=== PATIENT | male | born 1970 | race Caucasian/White ===

== ENCOUNTER 2019-07-04 23:30 | Observation (INO) | payer OTHER ==
[2019-07-04] MEDS ORDERED: DILTIAZEM DRIP BOLUS FROM BAG 1 MG SOLN IV ONE (23:48)
[2019-07-04] MEDS ORDERED: SODIUM CHLORIDE 0.9% 1,000 ML IV STA (23:48)
[2019-07-05] MEDS: DILTIAZEM 125 MG in SODIUM CHLORIDE 0.9% 100 ML IV SCH ×2 (00:13→08:33)
--- NOTE | 2019-07-05 00:13 | ED ---
Arrhythmia/Palpitations HPI - General Chief Complaint: Arrhythmia/Palpitations Stated Complaint: Palpitations Time Seen by Provider: 07/04/19 23:37 Source: patient, family, RN notes reviewed, old records reviewed Mode of arrival: ambulatory Limitations: no limitations - History of Present Illness Initial Comments: This is a 49-year-old male here for evaluation patient currently if her heart racing and palpitations. No medical history of borderline high blood pressure but is still is using diet and exercise to combat his high blood pressure. Patient does admit to some New Year's resolutions including quitting smoking for 3 days, he has messaging increased caffeine today she is using combativeness smoking Perry, as well as drinking some alcohol today. Patient denying any chest pain travel history significant sick contacts or illicit drug abuse. MD Complaint: "heart racing", "skipped beats", palpitations, irregular heart beat -: hour(s) Context: occurred during rest Arrhythmia History: other (None although patient does admit to having symptoms like this before is not as severe and did not last as long) Associated Symptoms: shortness of breath, anxiety - Related Data Allergies Allergy/AdvReac Type Severity Reaction Status Date / Time No Known Allergies Allergy Verified 07/04/19 23:36 Review of Systems ROS Statement: Those systems with pertinent positive or pertinent negative responses have been documented in the HPI. ROS Other: All systems not noted in ROS Statement are negative. Past Medical History Past Medical History: No Reported History History of Any Multi-Drug Resistant Organisms: None Reported Past Surgical History: Appendectomy, Orthopedic Surgery Past Psychological History: No Psychological Hx Reported Smoking Status: Former smoker Past Alcohol Use History: Occasional Past Drug Use History: None Reported General Exam Limitations: no limitations General appearance: alert, in no apparent distress, anxious Head exam: Present: atraumatic, normocephalic, normal inspection Eye exam: Present: normal appearance, PERRL, EOMI. Absent: scleral icterus, conjunctival injection, periorbital swelling ENT exam: Present: normal exam, mucous membranes moist Neck exam: Present: normal inspection. Absent: tenderness, meningismus, lymphadenopathy Respiratory exam: Present: normal lung sounds bilaterally. Absent: respiratory distress, wheezes, rales, rhonchi, stridor Cardiovascular Exam: Present: tachycardia, irregular rhythm, normal heart sounds. Absent: systolic murmur, diastolic murmur, rubs, gallop, clicks GI/Abdominal exam: Present: soft, normal bowel sounds. Absent: distended, tenderness, guarding, rebound, rigid Extremities exam: Present: normal inspection, full ROM, normal capillary refill. Absent: tenderness, pedal edema, joint swelling, calf tenderness Back exam: Present: normal inspection Neurological exam: Present: alert, oriented X3, CN II-XII intact Psychiatric exam: Present: normal affect, normal mood Skin exam: Present: warm, dry, intact, normal color. Absent: rash Course Vital Signs 07/04/19 07/05/19 07/05/19 23:30 00:15 01:03 Temperature 98.1 F Pulse Rate 20 L 156 H 101 H Respiratory 157 H 18 17 Rate Blood Pressure 152/100 132/108 141/105 O2 Sat by Pulse 98 96 97 Oximetry - Reevaluation(s) Reevaluation #1: 07/05/19 00:11 Medical record review Reevaluation #2: 07/05/19 00:11 The patient at length regarding diagnosis and disease process, questions answered Reevaluation #3: 07/05/19 01:13 Patient symptoms are moderate improved - Consultations Consultation #1: Spoke with [facility] she was agreeable for admission EKG Findings - EKG Comments: EKG Findings:: EKG shows atrial fibrillation with RVR 136, QRS 150, QTC 448 Medical Decision Making - Medical Decision Making 49 male patient does have a trip for evaluation with RVR will be admitted for cardiac observation rate control anticoagulation. 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 - Lab Data Result diagrams: 07/04/19 23:50 07/04/19 23:50 Lab Results 07/04/19 07/04/19 07/04/19 Range/Units 23:50 23:50 23:50 WBC 10.2 (3.8-10.6) k/uL RBC 5.31 (4.30-5.90) m/uL Hgb 15.5 (13.0-17.5) gm/dL Hct 45.5 (39.0-53.0) % MCV 85.6 (80.0-100.0) fL MCH 29.1 (25.0-35.0) pg MCHC 34.0 (31.0-37.0) g/dL RDW 13.0 (11.5-15.5) % Plt Count 243 (150-450) k/uL Neutrophils % 53 % Lymphocytes % 35 % Monocytes % 7 % Eosinophils % 3 % Basophils % 1 % Neutrophils # 5.4 (1.3-7.7) k/uL Lymphocytes # 3.6 (1.0-4.8) k/uL Monocytes # 0.7 (0-1.0) k/uL Eosinophils # 0.3 (0-0.7) k/uL Basophils # 0.1 (0-0.2) k/uL Sodium 140 (137-145) mmol/L Potassium 4.2 (3.5-5.1) mmol/L Chloride 109 H (98-107) mmol/L Carbon Dioxide 22 (22-30) mmol/L Anion Gap 9 mmol/L BUN 15 (9-20) mg/dL Creatinine 0.74 (0.66-1.25) mg/dL Est GFR (CKD-EPI)AfAm >90 (>60 ml/min/1.73 sqM) Est GFR (CKD-EPI)NonAf >90 (>60 ml/min/1.73 sqM) Glucose 139 H (74-99) mg/dL Calcium 9.7 (8.4-10.2) mg/dL Phosphorus 4.1 (2.5-4.5) mg/dL Magnesium 2.1 (1.6-2.3) mg/dL Total Bilirubin 0.3 (0.2-1.3) mg/dL AST 28 (17-59) U/L ALT 30 (4-49) U/L Alkaline Phosphatase 107 (38-126) U/L Troponin I <0.012 (0.000-0.034) ng/mL Total Protein 7.3 (6.3-8.2) g/dL Albumin 4.7 (3.5-5.0) g/dL Urine Color Urine Appearance (Clear) Urine pH (5.0-8.0) Ur Specific Fenton (1.001-1.035) Urine Protein (Negative) Urine Glucose (UA) (Negative) Urine Ketones (Negative) Urine Blood (Negative) Urine Nitrite (Negative) Urine Bilirubin (Negative) Urine Urobilinogen (<2.0) mg/dL Ur Leukocyte Esterase (Negative) 07/04/19 Range/Units 23:50 WBC (3.8-10.6) k/uL RBC (4.30-5.90) m/uL Hgb (13.0-17.5) gm/dL Hct (39.0-53.0) % MCV (80.0-100.0) fL MCH (25.0-35.0) pg MCHC (31.0-37.0) g/dL RDW (11.5-15.5) % Plt Count (150-450) k/uL Neutrophils % % Lymphocytes % % Monocytes % % Eosinophils % % Basophils % % Neutrophils # (1.3-7.7) k/uL Lymphocytes # (1.0-4.8) k/uL Monocytes # (0-1.0) k/uL Eosinophils # (0-0.7) k/uL Basophils # (0-0.2) k/uL Sodium (137-145) mmol/L Potassium (3.5-5.1) mmol/L Chloride (98-107) mmol/L Carbon Dioxide (22-30) mmol/L Anion Gap mmol/L BUN (9-20) mg/dL Creatinine (0.66-1.25) mg/dL Est GFR (CKD-EPI)AfAm (>60 ml/min/1.73 sqM) Est GFR (CKD-EPI)NonAf (>60 ml/min/1.73 sqM) Glucose (74-99) mg/dL Calcium (8.4-10.2) mg/dL Phosphorus (2.5-4.5) mg/dL Magnesium (1.6-2.3) mg/dL Total Bilirubin (0.2-1.3) mg/dL AST (17-59) U/L ALT (4-49) U/L Alkaline Phosphatase (38-126) U/L Troponin I (0.000-0.034) ng/mL Total Protein (6.3-8.2) g/dL Albumin (3.5-5.0) g/dL Urine Color Light Yellow Urine Appearance Clear (Clear) Urine pH 6.5 (5.0-8.0) Ur Specific Fenton 1.004 (1.001-1.035) Urine Protein Negative (Negative) Urine Glucose (UA) Negative (Negative) Urine Ketones Negative (Negative) Urine Blood Negative (Negative) Urine Nitrite Negative (Negative) Urine Bilirubin Negative (Negative) Urine Urobilinogen <2.0 (<2.0) mg/dL Ur Leukocyte Esterase Negative (Negative) Critical Care Time Critical Care Time: Yes Total Critical Care Time: 31 Disposition Clinical Impression: Atrial fibrillation, Atrial fibrillation with RVR Disposition: ADMITTED IP TO THIS HOSP Condition: Good Is patient prescribed a controlled substance at d/c from ED?: No Referrals: Makenzie Petty III, MD [Primary Care Provider] - 1-2 days
[2019-07-05 00:49] LABS: Appearance,Urine Clear (Clear); Basophils # (A) 0.1 k/uL (0-0.2); Basophils % (A) 1 %; Bilirubin,Urine Negative (Negative); Blood,Urine Negative (Negative); Color,Urine Light Yellow; Eosinophils # (A) 0.3 k/uL (0-0.7); Eosinophils % (A) 3 %; Glucose,Urine (UA) Negative (Negative); HCT 45.5 % (39.0-53.0); HGB 15.5 gm/dL (13.0-17.5); Ketones,Urine Negative (Negative); Leukocyte Esterase,Urine Negative (Negative); Lymphocytes # (A) 3.6 k/uL (1.0-4.8); Lymphocytes % (A) 35 %; MCH 29.1 pg (25.0-35.0); MCV 85.6 fL (80.0-100.0); Mean Platelet Volume 7.5; Monocytes # (A) 0.7 k/uL (0-1.0); Monocytes % (A) 7 %; Neutrophils # (A) 5.4 k/uL (1.3-7.7); Neutrophils % (A) 53 %; Nitrite,Urine Negative (Negative); PH, Urine 6.5 (5.0-8.0); Platelet Count 243 k/uL (150-450); Protein,Urine Negative (Negative); RBC 5.31 m/uL (4.30-5.90); Specific Gravity,Urine 1.004 (1.001-1.035); Urobilinogen,Urine <2.0 mg/dL (<2.0); WBC 10.2 k/uL (3.8-10.6)
[2019-07-05] MEDS ORDERED: HEPARIN SODIUM,PORCINE 5,000 UNIT/ML 1 ML VIAL IV ONE (00:58)
[2019-07-05] MEDS ORDERED: NITROGLYCERIN SL TABS 0.4 MG TAB SUBLINGUAL PRN (00:58)
[2019-07-05] MEDS ORDERED: ASPIRIN 81 MG PO STA (00:58)
[2019-07-05 01:01] LABS: ALT 30 U/L (4-49); AST 28 U/L (17-59); African American GFR (CKD) >90 (>60 ml/min/1.73 sqM); Albumin 4.7 g/dL (3.5-5.0); Alkaline Phosphatase 107 U/L (38-126); Anion Gap 9 mmol/L; Blood Urea Nitrogen 15 mg/dL (9-20); Calcium 9.7 mg/dL (8.4-10.2); Carbon Dioxide 22 mmol/L (22-30); Chloride 109 mmol/L (98-107); Glucose 139 mg/dL (74-99); Magnesium 2.1 mg/dL (1.6-2.3); Non-African American GFR(CKD) >90 (>60 ml/min/1.73 sqM); Phosphorus 4.1 mg/dL (2.5-4.5); Potassium 4.2 mmol/L (3.5-5.1); Sodium 140 mmol/L (137-145); Total Bilirubin 0.3 mg/dL (0.2-1.3); Total Protein 7.3 g/dL (6.3-8.2)
[2019-07-05 01:23] LABS: D-Dimer 0.29 mg/L FEU (<0.60); INR 0.9 (<1.2); Partial Thromboplastin Time 24.8 sec (22.0-30.0); Prothrombin Time 9.6 sec (9.0-12.0)
[2019-07-05] MEDS: HEPARIN SOD,PORK IN 0.45% NACL 25,000 UNIT in 0.45% NACL 1 250ML.BAG IV SCH (03:09)
[2019-07-05] MEDS: SODIUM CHLORIDE 0.9% 1,000 ML IV SCH ×3 (03:14→21:06)
[2019-07-05 06:46] LABS: Mean Platelet Volume 7.3; Platelet Count 241 k/uL (150-450)
[2019-07-05] MEDS: METOPROLOL TARTRATE 25 MG TAB PO SCH ×2 (08:32→21:05)
[2019-07-05] MEDS: HEPARIN SODIUM,PORCINE 5,000 UNIT/ML 1 ML VIAL IV PRN (11:35)
--- NOTE | 2019-07-05 12:30 | ECHOF ---
Referral Reason:aFib MEASUREMENTS -------- HEIGHT: 182.9 cm WEIGHT: 103.0 kg BP: RVIDd: 3.2 cm (< 3.3) IVSd: 1.4 cm (0.6 - 1.1) LVIDd: 3.9 cm (3.9 - 5.3) LVPWd: 1.7 cm (0.6 - 1.1) IVSs: 2.0 cm LVIDs: 2.5 cm LVPWs: 2.1 cm LAESV Index (A-L): 27.16 ml/m Ao Diam: 3.7 cm (2.0 - 3.7) AV Cusp: 1.9 cm (1.5 - 2.6) LA Diam: 4.0 cm (2.7 - 3.8) MV EXCURSION: 22.863 mm (> 18.000) MV EF SLOPE: 171 mm/s (70 - 150) EPSS: 0.4 cm RAP: 5.00 mmHg RVSP: 20.72 mmHg FINDINGS -------- Atrial fibrillation. This was a technically adequate study. The left ventricular size is normal. There is moderate concentric left ventricular hypertrophy. O verall left ventricular systolic function is normal with, an EF between 55 - 60 %. Left ventricular fillimg pressure cannot be estimated due to Atrial fibrillation. The right ventricle is normal in size. The left atrial size is normal. Normal LA size by volume 22+/-6 ml/m2. The right atrial size is normal. Interatrial and interventricular septum intact. The aortic valve is trileaflet and appears structurally normal. The mitral valve is normal. There is trace mitral regurgitation. The tricuspid valve appears structurally normal. Trace tricuspid regurgitation present. Right layo tricular systolic pressure is normal at < 35 mmHg. There is no pulmonic regurgitation present. The aortic root size is normal. Normal inferior vena cava with normal inspiratory collapse consistent with estimated right atrial pre ssure of 5 mmHg. There is no pericardial effusion. CONCLUSIONS -------- 1. Atrial fibrillation. 2. This was a technically adequate study. 3. The left ventricular size is normal. 4. There is moderate concentric left ventricular hypertrophy. 5. Overall left ventricular systolic function is normal with, an EF between 55 - 60 %. 6. Left ventricular fillimg pressure cannot be estimated due to Atrial fibrillation. 7. The right ventricle is normal in size. 8. The left atrial size is normal. 9. Normal LA size by volume 22+/-6 ml/m2. 10. The right atrial size is normal. 11. Interatrial and interventricular septum intact. 12. The aortic valve is trileaflet and appears structurally normal. 13. The mitral valve is normal. 14. There is trace mitral regurgitation. 15. The tricuspid valve appears structurally normal. 16. Trace tricuspid regurgitation present. 17. Right ventricular systolic pressure is normal at < 35 mmHg. 18. There is no pulmonic regurgitation present. 19. The aortic root size is normal. 20. Normal inferior vena cava with normal inspiratory collapse consistent with estimated right atrial pressure of 5 mmHg. 21. There is no pericardial effusion. ARTIFICIAL LIMB FITTER: Marjorie Mercado RDCS
[2019-07-05] MEDS ORDERED: PROPAFENONE 225 MG TAB PO STA (14:22)
--- NOTE | 2019-07-05 14:55 | P.CRDCN ---
History of Present Illness Consult date: 07/05/19 Requesting physician: Dre Meyer Consult reason: atrial fibrillation Chief complaint: Palpitations History of present illness: This is a 49-year-old gentleman with history of nicotine dependence, he states that he quit smoking on Thursday of this week, no history of hypertension, no diabetes, no hyperlipidemia, occasionally drinks EtOH, and does drink on occasion significant amounts of caffeine. He presented to the hospital last evening with symptoms of fairly sudden onset of palpitations and heart racing. He denies any associated symptoms, just states that it felt like his heart was beating fast. His EKG on presentation here showed atrial fibrillation with a rapid ventricular response. Patient was initiated on IV heparin and IV Cardizem, an echocardiogram with Doppler study was performed which revealed a normal left ventricular systolic function. I pressure 104/80 with a heart rate currently in the 70s, 97% on room air, temperature 97.9. Blood cell count 10.2, hemoglobin 15.5, platelet count 241. D-dimer 0.2. Sodium 140, potassium 4.2, BUN 15, creatinine 0.7. Troponins are negative 3. TSH level3.1. Patient was seen in consultation by Dr. Karmen Brewster, we'll give the patient Rythmol 450 mg now, discontinue the IV Cardizem, continue IV heparin. At the time of my examination, patient overall feels well, no complaints, no chest discomfort or palpitations at present in his breathing is stable. Past Medical History Past Medical History: GERD/Reflux Additional Past Medical History / Comment(s): Bronchitis History of Any Multi-Drug Resistant Organisms: None Reported Past Surgical History: Adenoidectomy, Appendectomy, Orthopedic Surgery, Tonsillectomy Additional Past Surgical History / Comment(s): R knee arthroscopy, R femur has negro/screws Past Anesthesia/Blood Transfusion Reactions: No Reported Reaction Smoking Status: Former smoker - Past Family History Mother Family Medical History: No Reported History Additional Family Medical History / Comment(s): Mother is healthy Father Family Medical History: Congestive Heart Failure (CHF), Diabetes Mellitus, Hypertension Additional Family Medical History / Comment(s): Father at the age of 73 yrs. HTN ran on pt's father's side of family. Medications and Allergies Home Medications Medication Instructions Recorded Confirmed Type No Known Home Medications 07/05/19 07/05/19 History Allergies Allergy/AdvReac Type Severity Reaction Status Date / Time No Known Allergies Allergy Verified 07/05/19 06:31 Physical Exam Vitals: Vital Signs Temp Pulse Pulse Resp BP BP Pulse Ox 07/05/19 07:51 97.9 F 70 16 89/78 95 07/05/19 06:32 78 07/05/19 04:41 98.1 F 120 H 18 116/86 96 07/05/19 03:11 92 18 99/82 96 07/05/19 01:31 130 H 18 109/55 98 07/05/19 01:03 101 H 17 141/105 97 07/05/19 00:15 156 H 18 132/108 96 07/04/19 23:30 98.1 F 157 H 20 152/100 98 Intake and Output 07/04/19 07/05/19 07/05/19 22:59 06:59 14:59 Intake Total 60.883 103.475 Balance 60.883 103.475 Intake: Intake, IV Titration 60.883 103.475 Amount Diltiazem 125 mg In 60.883 19.667 Sodium Chloride 0.9% 100 ml @ 5 MG/HR 5 mls/hr IV .Q24H [facility] Rx#:[id number] Heparin Sod,Pork in 0.45% 83.808 NaCl 25,000 unit In 0.45 % NaCl 1 250ml.bag @ 9. 709 UNITS/KG/HR 9.997 mls /hr IV .Q24H [facility] Rx#: [id number] Other: Weight 102.965 kg 102.965 kg PHYSICAL EXAMINATION: GENERAL: 79-year-old gentleman in no acute distress examination HEENT: Head is atraumatic, normocephalic. Pupils equal, round. Sclera anicteric. Conjunctiva are clear. Mucous membranes of the mouth are moist. Neck is supple. There is no elevated jugular venous pressure. No carotid bruit is heard. HEART EXAMINATION: S1 and S2 irregularly irregular CHEST EXAMINATION: Lungs are clear to auscultation and precussion. No chest wall tenderness is noted on palpation or with deep breathing. ABDOMEN: Soft, nontender. Bowel sounds are heard. No organomegaly noted. EXTREMITIES: 2+ peripheral pulses with no evidence of peripheral edema and no calf tenderness noted. NEUROLOGIC patient is awake, alert and oriented 3. . Results 07/05/19 06:29 07/04/19 23:50 Cardiac Enzymes 07/04/19 07/04/19 07/05/19 Range/Units 23:50 23:50 06:29 AST 28 (17-59) U/L Troponin I <0.012 0.022 (0.000-0.034) ng/mL 07/05/19 Range/Units 10:23 AST (17-59) U/L Troponin I <0.012 (0.000-0.034) ng/mL Coagulation 07/04/19 07/05/19 Range/Units 23:50 10:23 PT 9.6 (9.0-12.0) sec APTT 24.8 34.3 H (22.0-30.0) sec CBC 07/04/19 07/05/19 Range/Units 23:50 06:29 WBC 10.2 (3.8-10.6) k/uL RBC 5.31 (4.30-5.90) m/uL Hgb 15.5 (13.0-17.5) gm/dL Hct 45.5 (39.0-53.0) % Plt Count 243 241 (150-450) k/uL Comprehensive Metabolic Panel 07/04/19 Range/Units 23:50 Sodium 140 (137-145) mmol/L Potassium 4.2 (3.5-5.1) mmol/L Chloride 109 H (98-107) mmol/L Carbon Dioxide 22 (22-30) mmol/L BUN 15 (9-20) mg/dL Creatinine 0.74 (0.66-1.25) mg/dL Glucose 139 H (74-99) mg/dL Calcium 9.7 (8.4-10.2) mg/dL AST 28 (17-59) U/L ALT 30 (4-49) U/L Alkaline Phosphatase 107 (38-126) U/L Total Protein 7.3 (6.3-8.2) g/dL Albumin 4.7 (3.5-5.0) g/dL Current Medications Generic Name Dose Route Start Last Admin Trade Name Freq PRN Reason Stop Dose Admin Aspirin 81 mg 07/06/19 09:00 Aspirin PO DAILY ANTOINE Heparin Sodium (Porcine) 0 unit 07/05/19 00:58 07/05/19 11:35 Heparin IV 4,000 unit Q6HR PRN Administration Low PTT Protocol Sodium Chloride 1,000 mls @ 100 mls/hr 07/05/19 01:00 07/05/19 03:14 Saline 0.9% IV 100 mls/hr .Q10H [facility] Administration Heparin Sodium/Sodium Chloride 250 mls @ 9.997 mls/hr 07/05/19 01:00 07/05/19 11:32 25,000 unit/ Sodium Chloride IV 12.709 units/kg/hr .Q24H [facility] 13.086 mls/hr Titration Protocol 9.709 UNITS/KG/HR Metoprolol Tartrate 25 mg 07/05/19 09:00 07/05/19 08:32 Lopressor PO 25 mg BID ANTOINE Administration Nitroglycerin 0.4 mg 07/05/19 00:58 Nitrostat SUBLINGUAL Q5M PRN Chest Pain Intake and Output 07/04/19 07/05/19 07/05/19 22:59 06:59 14:59 Intake Total 60.883 103.475 Balance 60.883 103.475 Intake: Intake, IV Titration 60.883 103.475 Amount Diltiazem 125 mg In 60.883 19.667 Sodium Chloride 0.9% 100 ml @ 5 MG/HR 5 mls/hr IV .Q24H [facility] Rx#:[id number] Heparin Sod,Pork in 0.45% 83.808 NaCl 25,000 unit In 0.45 % NaCl 1 250ml.bag @ 9. 709 UNITS/KG/HR 9.997 mls /hr IV .Q24H [facility] Rx#: [id number] Other: Weight 102.965 kg 102.965 kg Patient Weight 07/06/19 06:59 Weight 102.965 kg 07/05/19 06:29 07/04/19 23:50 EKG Interpretations (text) EKG shows atrial fibrillation with rapid ventricular response Assessment and Plan Plan: Assessment and plan #1 atrial fibrillation with rapid ventricular response, appears to be of new onset for the patient. We'll discontinue the IV Cardizem, continue the IV heparin. Give the patient 450 mg of Rythmol stat metoprolol 25 mg one tablet by mouth twice a day. #2 nicotine dependence, patient quit smoking on Thursday of this week #3 occasional EtOH use #4 cardiac risk factors negative for hypertension, no diabetes, no hyperlipidemia Plan Echo cardiac gram with Doppler study was performed which revealed a normal left ventricular systolic function. We will give the patient 450 mg of Rythmol now, discontinue the IV Cardizem. Continue IV heparin. Continue to monitor the patient for another 24 hours, admitted to the cardiac unit. We will also check a TSH level. DNP note has been reviewed, I agree with a documented findings and plan of care. Patient was seen and examined.
[2019-07-05] MEDS ORDERED: ACETAMINOPHEN TAB 500 MG TAB PO PRN (15:30)
[2019-07-05] MEDS ORDERED: ALPRAZolam 0.25 MG TAB PO PRN (15:30)
[2019-07-05] MEDS ORDERED: TEMAZEPAM 15 MG CAP PO PRN (15:30)
--- NOTE | 2019-07-05 20:03 | HP ---
HISTORY AND PHYSICAL DATE OF SERVICE: 07/05/2019 CHIEF COMPLAINT: Heart palpitations. HISTORY OF PRESENT ILLNESS: This is a 49-year-old gentleman with a past medical history of multiple medical problems including history of GERD, history of bronchitis, history of appendectomy, history of adenoidectomy, being followed Dr. Petty in the outpatient setting, apparently had heart palpitations. Patient came to [facility]. Patient was found to have atrial fibrillation with fast ventricular rate. Patient was started on Cardizem drip and the patient was monitored closely at this time. There is no history of fever or rigors. No history of headache, loss of consciousness, seizures. PAST MEDICAL HISTORY: History of GERD, history of bronchitis, history of adenoidectomy, history of appendectomy, history of DJD. HOME MEDICATIONS: None. ALLERGIES: None. FAMILY HISTORY: No history of heart disease or strokes in the family. SOCIAL HISTORY: Previous history of smoking. Occasional alcohol intake. REVIEW OF SYSTEMS: ENT: No history of diminished hearing or vision. CARDIOVASCULAR: As mentioned earlier. RESPIRATORY: As mentioned earlier. GI: No nausea, vomiting, or diarrhea. : No dysuria. NERVOUS: No numbness or weakness. ALLERGY/IMMUNOLOGY: No asthma or hayfever. MUSCULOSKELETAL: As mentioned earlier. HEMATOLOGY/ONCOLOGY: Negative. ENDOCRINE: No history of diabetes or hypothyroidism. SKIN: Negative. CONSTITUTIONAL: As mentioned earlier. PSYCHIATRY: As mentioned earlier. PHYSICAL EXAMINATION: Alert and oriented x3. Pulse 76, blood pressure 115/75, respiration 18, temp 98.2, pulse ox 97% on room air. HEENT: Conjunctivae normal. Oral mucosa moist. NECK: No jugular venous distention. No lymph node enlargement. CARDIOVASCULAR: S1, S2. RESPIRATORY: Diminished breath sounds at the bases. Bilateral scattered rhonchi and crackles. Expiratory wheezing also present. ABDOMEN: Soft, nontender. No mass palpable. LEGS: No edema, no swelling. NERVOUS SYSTEM: Higher functions mentioned earlier. Moves all four limbs. No focal motor or sensory deficits. LYMPHATICS: No lymph node in neck or axilla. SKIN: No rash. JOINTS: No active deforming arthropathy. LABS: CBC within normal limits. Glucose 140, potassium 4.2. ASSESSMENT: 1. Atrial fibrillation with fast ventricular rate, present on admission with palpitations. 2. Heparin monitoring. 3. Increased random blood sugar. 4. History of gastroesophageal reflux disease. 5. History of bronchitis. 6. History of adenoidectomy. 7. History of degenerative joint disease. 8. History of nicotine dependence. RECOMMENDATIONS AND DISCUSSION: This 49-year-old gentleman who presented with multiple complex medical issues, we will monitor the patient closely, continue the current medications, continue symptomatic treatment. Otherwise, recommend 2D echo with Doppler. Cardiology consultation. We will continue the heparin, beta blockers. Guarded prognosis. Further recommendations to follow. A 2D echo with Doppler which was just read by Cardiology showed ejection fraction about 50-60%. Prognosis guarded. MMODL / IJN: [id number] /
[2019-07-06] MEDS: HEPARIN SOD,PORK IN 0.45% NACL 25,000 UNIT in 0.45% NACL 1 250ML.BAG IV SCH ×2 (04:02→07:48)
[2019-07-06] MEDS: SODIUM CHLORIDE 0.9% 1,000 ML IV SCH (06:56)
[2019-07-06] MEDS ORDERED: PANTOPRAZOLE 40 MG TABLET PO SCH (07:30)
[2019-07-06 07:35] LABS: Carbon Dioxide 25 mmol/L (22-30); Chloride 111 mmol/L (98-107); Glucose 103 mg/dL (74-99); Potassium 4.5 mmol/L (3.5-5.1); Sodium 140 mmol/L (137-145)
[2019-07-06 07:36] LABS: African American GFR (CKD) >90 (>60 ml/min/1.73 sqM); Anion Gap 4 mmol/L; Blood Urea Nitrogen 14 mg/dL (9-20); Cholesterol 174 mg/dL (<200); HDL Cholesterol 51 mg/dL (40-60); LDL Cholesterol,Calculated 95 mg/dL (0-99); Non-African American GFR(CKD) >90 (>60 ml/min/1.73 sqM); Triglycerides 142 mg/dL (<150)
[2019-07-06] MEDS: METOPROLOL TARTRATE 25 MG TAB PO SCH (08:09)
[2019-07-06] MEDS: HEPARIN SODIUM,PORCINE 5,000 UNIT/ML 1 ML VIAL IV PRN (08:09)
[2019-07-06] MEDS ORDERED: ASPIRIN 325 MG TAB PO SCH (09:00)
[2019-07-06] MEDS ORDERED: ASPIRIN 81 MG PO SCH (09:00)
[2019-07-06 10:43] VITALS: RESP 18
[2019-07-06 12:29] LABS: Basophils # (A) 0.1 k/uL (0-0.2); Basophils % (A) 1 %; Eosinophils # (A) 0.2 k/uL (0-0.7); Eosinophils % (A) 2 %; HCT 39.8 % (39.0-53.0); HGB 12.8 gm/dL (13.0-17.5); Lymphocytes # (A) 3.5 k/uL (1.0-4.8); Lymphocytes % (A) 40 %; MCH 28.3 pg (25.0-35.0); MCHC 32.2 g/dL (31.0-37.0); MCV 87.9 fL (80.0-100.0); Mean Platelet Volume 8.4; Monocytes # (A) 0.6 k/uL (0-1.0); Monocytes % (A) 7 %; Neutrophils # (A) 4.1 k/uL (1.3-7.7); Neutrophils % (A) 47 %; Platelet Count 251 k/uL (150-450); RBC 4.52 m/uL (4.30-5.90); RDW 13.4 % (11.5-15.5); WBC 8.7 k/uL (3.8-10.6)
[2019-07-06 12:48] VITALS: BP 121/74; PULSE 47; TEMP 98.4
[2019-07-06] MEDS ORDERED: PROPAFENONE 150 MG TAB PO SCH (13:00)
--- NOTE | 2019-07-06 14:55 | PN ---
PROGRESS NOTE Mr. Buitrago came in with paroxysmal new onset atrial fibrillation. He is doing well. He is in sinus rhythm, resting comfortably. Vitals are stable. No JVD. S1, S2 heard normally. Lungs are clear. Abdomen and lower extremity exam is unchanged. Echo revealed normal systolic function. His heart rate is somewhat slower. I am recommending that we will discharge him on aspirin 81 mg daily and Rythmol 150 mg t.i.d. Advised to avoid caffeine, alcohol and tobacco. I will see him in the office in 2 weeks. MMODL / IJN: [id number] /
--- NOTE | 2019-07-06 15:07 | DS ---
DISCHARGE SUMMARY DATE OF SERVICE: 07/06/2019 FINAL DIAGNOSES: 1. Atrial ablation, fast rate present on admission, paroxysmal. 2. Heparin monitoring. 3. Increased random blood sugar. 4. History of gastroesophageal reflux disease. 5. History of bronchitis. 6. History of adenoidectomy. 7. History of degenerative joint disease. 8. History of nicotine dependence. DISCHARGE DISPOSITION: The patient will be discharged in a stable condition with guarded prognosis. HISTORY OF PRESENT ILLNESS: This is a 49-year-old gentleman with a past medical history of multiple medical problems being followed by Dr. Petty in the outpatient setting, admitted with atrial fibrillation with fast ventricular rate and palpitations. Patient was given Cardizem drip. Patient converted to normal sinus rhythm. Cardiology recommended the patient to continue with beta blockers and aspirin at this time, no anticoagulation. On exam, vitals are stable. CARDIOVASCULAR: S1, S2. ABDOMEN: Soft. NERVOUS SYSTEM: No focal deficits. DISCHARGE ADVICE: 1. Discharge diet is cardiac diet. 2. Activity limited until followup. 3. Follow up with Dr. Petty to 2 days 3 days. 4. Follow up with Dr. Osman Brewster as recommended. MEDICATIONS: 1. Aspirin 81 mg p.o. daily. 2. Habitrol 14 daily. 3. No smoking. 4. Lopressor 25 mg p.o. b.i.d. 5. Rythmol 150 mg p.o. t.i.d. Once again, the patient will be discharged in a stable condition with guarded prognosis. MMODL / IJN: [id number] /
== END 2019-07-06 14:03 | disposition home or self-care (01) ==
LOC: EC 23:30 → INTOOBSV 07-05 00:58 → 3SCARD 07-05 00:58 → UNDOADMIN 07-05 00:58 → 2SICU 07-05 06:12 → 3SCARD 07-05 06:12 → 2SICU 07-05 06:19 → 3SCARD 07-05 06:19 → UNDODISIN 07-06 14:03
PROVIDERS: ADMIT Hospitalist; ATTEND Hospitalist
DX: I48.0 Paroxysmal atrial fibrillation (principal); K21.9 Gastro-esophageal reflux disease without esophagitis; M19.90 Unspecified osteoarthritis, unspecified site; Z90.49 Acquired absence of other specified parts of digestive tract; Z98.890 Other specified postprocedural states; Z82.49 Family history of ischemic heart disease and other diseases of the circulatory system; Z83.3 Family history of diabetes mellitus; Z87.891 Personal history of nicotine dependence
CPT/HCPCS: 96376 ×2; 96366 ×3; 93005 ×3; 96365; 99291; 36415; 93306; 85379; 83880; 80061; 80053; 80048; 83735; 84100; 84443; 84484; 85025 ×2; 85049; 85610; 85730 ×2; 81003; G0378 ×3; J1644 ×4; 96368

== ENCOUNTER 2021-09-23 04:10 | Emergency (ER) | payer BC, OTHER ==
[2021-09-23 04:21] VITALS: RESP 18; TEMP 97.2
--- NOTE | 2021-09-23 04:30 | ED ---
Arrhythmia/Palpitations HPI - General Chief Complaint: Arrhythmia/Palpitations Stated Complaint: Arrhythmia Time Seen by Provider: 09/23/21 04:25 Source: patient, family, RN notes reviewed, old records reviewed Mode of arrival: ambulatory Limitations: no limitations - History of Present Illness Initial Comments: This is a 51-year-old male to the emergency department for evaluation. Patient presents today for evaluation of severely elevated heart rate. Patient states his heart is pretty significant here in the emergency room. Not is worse when he hasn't originally a year ago. Feels palpitations but no shortness breath no chest pain. Patient does admit to going off regards weak and having significant more amount of alcohol and he normally doesn't regular basis. No chest pain. No shortness of breath MD Complaint: rapid heart beat, palpitations, atrial fibrillation -: hour(s) Context: occurred during rest, awoke with symptoms Arrhythmia History: atrial fibrillation Associated Symptoms: shortness of breath, anxiety Treatments Prior to Arrival: calcium channel iris - Related Data Home Medications Medication Instructions Recorded Confirmed Ascorbic Acid [Vitamin C] 1,000 mg PO HS 09/23/21 09/23/21 Multivitamins, Thera [Multivitamin 1 tab PO HS 09/23/21 09/23/21 (formulary)] Vitamin B Complex 1 cap PO DAILY 09/23/21 09/23/21 Zinc Gluconate [Zinc] 50 mg PO DAILY 09/23/21 09/23/21 Previous Rx's Medication Instructions Recorded Aspirin 81 mg PO DAILY #30 chew 07/06/19 Flecainide [Tambocor] 50 mg PO Q12HR #60 tab 09/24/21 Metoprolol Tartrate [Lopressor] 25 mg PO BID #60 tab 09/24/21 Allergies Allergy/AdvReac Type Severity Reaction Status Date / Time No Known Allergies Allergy Verified 09/23/21 18:33 Review of Systems ROS Statement: Those systems with pertinent positive or pertinent negative responses have been documented in the HPI. ROS Other: All systems not noted in ROS Statement are negative. Past Medical History Past Medical History: Atrial Fibrillation, GERD/Reflux Additional Past Medical History / Comment(s): Bronchitis History of Any Multi-Drug Resistant Organisms: None Reported Past Surgical History: Adenoidectomy, Appendectomy, Orthopedic Surgery, Tonsi llectomy Additional Past Surgical History / Comment(s): R knee arthroscopy, R femur has negro/screws Past Anesthesia/Blood Transfusion Reactions: No Reported Reaction Past Psychological History: No Psychological Hx Reported Smoking Status: Never smoker Past Alcohol Use History: Occasional Past Drug Use History: None Reported - Past Family History Mother Family Medical History: No Reported History Additional Family Medical History / Comment(s): Mother is healthy Father Family Medical History: Congestive Heart Failure (CHF), Diabetes Mellitus, Hypertension Additional Family Medical History / Comment(s): Father at the age of 73 yrs. HTN ran on pt's father's side of family. General Exam Limitations: no limitations General appearance: alert, in no apparent distress, anxious Head exam: Present: atraumatic, normocephalic, normal inspection Eye exam: Present: normal appearance, PERRL, EOMI. Absent: scleral icterus, conjunctival injection, periorbital swelling ENT exam: Present: normal exam, mucous membranes moist Neck exam: Present: normal inspection. Absent: tenderness, meningismus, lymphadenopathy Respiratory exam: Present: normal lung sounds bilaterally. Absent: respiratory distress, wheezes, rales, rhonchi, stridor Cardiovascular Exam: Present: tachycardia, irregular rhythm, normal heart sounds. Absent: systolic murmur, diastolic murmur, rubs, gallop, clicks GI/Abdominal exam: Present: soft, normal bowel sounds. Absent: distended, tenderness, guarding, rebound, rigid Extremities exam: Present: normal inspection, full ROM, normal capillary refill. Absent: tenderness, pedal edema, joint swelling, calf tenderness Back exam: Present: normal inspection Neurological exam: Present: alert, oriented X3, CN II-XII intact Psychiatric exam: Present: normal affect, normal mood Skin exam: Present: warm, dry, intact, normal color. Absent: rash Course Vital Signs 09/23/21 09/23/21 09/23/21 04:15 04:40 05:14 Temperature 97.2 F L Pulse Rate 48 L 137 H 73 Respiratory 18 18 18 Rate Blood Pressure 135/85 118/87 97/77 O2 Sat by Pulse 97 96 96 Oximetry 09/23/21 09/23/21 06:13 06:31 Temperature Pulse Rate 70 72 Respiratory 18 18 Rate Blood Pressure 94/77 99/58 O2 Sat by Pulse 96 98 Oximetry EKG Findings - EKG Comments: EKG Findings:: EKG shows A. fib with RVR 131 QRS 95 QTC 363 Medical Decision Making - Medical Decision Making 51 male to the emergency department for evaluation. Patient presents today for atrial fibrillation with RVR. Patient corrected H a fibrillation with normal rate. Patient feels better and can be discharged home - Lab Data Result diagrams: 09/23/21 04:35 09/23/21 04:35 Lab Results 09/23/21 09/23/21 09/23/21 Range/Units 04:35 04:35 04:35 WBC 10.7 H (3.8-10.6) k/uL RBC 5.45 (4.30-5.90) m/uL Hgb 15.5 (13.0-17.5) gm/dL Hct 47.0 (39.0-53.0) % MCV 86.2 (80.0-100.0) fL MCH 28.4 (25.0-35.0) pg MCHC 32.9 (31.0-37.0) g/dL RDW 13.8 (11.5-15.5) % Plt Count 308 (150-450) k/uL MPV 7.3 Neutrophils % 57 % Lymphocytes % 31 % Monocytes % 6 % Eosinophils % 1 % Basophils % 1 % Neutrophils # 6.1 (1.3-7.7) k/uL Lymphocytes # 3.4 (1.0-4.8) k/uL Monocytes # 0.7 (0-1.0) k/uL Eosinophils # 0.2 (0-0.7) k/uL Basophils # 0.1 (0-0.2) k/uL Sodium 138 (137-145) mmol/L Potassium 4.7 (3.5-5.1) mmol/L Chloride 108 H (98-107) mmol/L Carbon Dioxide 19 L (22-30) mmol/L Anion Gap 11 mmol/L BUN 23 H (9-20) mg/dL Creatinine 0.88 (0.66-1.25) mg/dL Est GFR (CKD-EPI)AfAm >90 (>60 ml/min/1.73 sqM) Est GFR (CKD-EPI)NonAf >90 (>60 ml/min/1.73 sqM) Glucose 138 H (74-99) mg/dL Calcium 9.5 (8.4-10.2) mg/dL Phosphorus 4.5 (2.5-4.5) mg/dL Magnesium 2.2 (1.6-2.3) mg/dL Total Bilirubin 0.8 (0.2-1.3) mg/dL AST 28 (17-59) U/L ALT 33 (4-49) U/L Alkaline Phosphatase 67 (38-126) U/L Troponin I <0.012 (0.000-0.034) ng/mL Total Protein 7.1 (6.3-8.2) g/dL Albumin 4.2 (3.5-5.0) g/dL Disposition Clinical Impression: Atrial fibrillation, Atrial fibrillation with RVR Disposition: HOME SELF-CARE Condition: Good Instructions (If sedation given, give patient instructions): A-fib (Atrial Fibrillation) (ED) Is patient prescribed a controlled substance at d/c from ED?: No Referrals: Makenzie Petty III, MD [Primary Care Provider] - 1-2 days
[2021-09-23] MEDS ORDERED: DILTIAZEM DRIP BOLUS FROM BAG 1 MG SOLN IV ONE (04:51)
[2021-09-23] MEDS ORDERED: SODIUM CHLORIDE 0.9% 1,000 ML IV STA (04:51)
[2021-09-23] MEDS ORDERED: METOPROLOL TARTRATE 5 MG/5 ML VIAL IVP STA (04:52)
[2021-09-23] MEDS ORDERED: DILTIAZEM 125 MG in SODIUM CHLORIDE 0.9% 100 ML IV SCH (05:00)
[2021-09-23 05:18] LABS: Basophils # (A) 0.1 k/uL (0-0.2); Basophils % (A) 1 %; Eosinophils # (A) 0.2 k/uL (0-0.7); Eosinophils % (A) 1 %; HGB 15.5 gm/dL (13.0-17.5); Lymphocytes # (A) 3.4 k/uL (1.0-4.8); Lymphocytes % (A) 31 %; MCH 28.4 pg (25.0-35.0); MCHC 32.9 g/dL (31.0-37.0); MCV 86.2 fL (80.0-100.0); Mean Platelet Volume 7.3; Monocytes # (A) 0.7 k/uL (0-1.0); Monocytes % (A) 6 %; Neutrophils # (A) 6.1 k/uL (1.3-7.7); Neutrophils % (A) 57 %; Platelet Count 308 k/uL (150-450); RBC 5.45 m/uL (4.30-5.90); RDW 13.8 % (11.5-15.5); WBC 10.7 k/uL (3.8-10.6)
[2021-09-23 05:28] LABS: ALT 33 U/L (4-49); AST 28 U/L (17-59); African American GFR (CKD) >90 (>60 ml/min/1.73 sqM); Albumin 4.2 g/dL (3.5-5.0); Alkaline Phosphatase 67 U/L (38-126); Anion Gap 11 mmol/L; Blood Urea Nitrogen 23 mg/dL (9-20); Calcium 9.5 mg/dL (8.4-10.2); Carbon Dioxide 19 mmol/L (22-30); Chloride 108 mmol/L (98-107); Glucose 138 mg/dL (74-99); Magnesium 2.2 mg/dL (1.6-2.3); Non-African American GFR(CKD) >90 (>60 ml/min/1.73 sqM); Phosphorus 4.5 mg/dL (2.5-4.5); Potassium 4.7 mmol/L (3.5-5.1); Sodium 138 mmol/L (137-145); Total Bilirubin 0.8 mg/dL (0.2-1.3); Total Protein 7.1 g/dL (6.3-8.2)
[2021-09-23 06:32] VITALS: BP 99/58; PULSE 72
== END 2021-09-23 06:54 | disposition home or self-care (01) ==
LOC: EC 04:10
DX: I48.20 Chronic atrial fibrillation, unspecified (principal)
CPT/HCPCS: 36415; 80053; 83735; 84100; 84484; 85025; 93005; 96365; 96375; 99284

== ENCOUNTER 2021-09-23 16:35 | Observation (INO) | payer OTHER, BC ==
--- NOTE | 2021-09-23 17:02 | ED ---
General Adult HPI - General Chief complaint: Arrhythmia/Palpitations Stated complaint: afib Time Seen by Provider: 09/23/21 16:51 Source: patient, family, RN notes reviewed Mode of arrival: ambulatory Limitations: no limitations - History of Present Illness Initial comments: Patient is a pleasant 51-year-old male presenting to emergency Department with A. roel. Patient does have history of this previously, prostate years ago. Patient felt odd sensation in his chest. Patient came to emergency department earlier this morning and was found to be in atrial fibrillation patient given additional medication and converted. Patient has felt similar symptoms again since that time. No chest pain. No dyspnea. Patient is only on 81 mg aspirin for anticoagulation at this time. - Related Data Previous Rx's Medication Instructions Recorded Aspirin 81 mg PO DAILY #30 chew 07/06/19 Metoprolol Tartrate [Lopressor] 25 mg PO BID #60 tab 07/06/19 Nicotine 14Mg/24Hr Patch [Habitrol 1 patch TRANSDERM DAILY #30 patch 07/06/19 14Mg/24Hr Patch] Propafenone [Rythmol] 150 mg PO TID #90 tablet 07/06/19 Allergies Allergy/AdvReac Type Severity Reaction Status Date / Time No Known Allergies Allergy Verified 09/23/21 16:41 Review of Systems ROS Statement: Those systems with pertinent positive or pertinent negative responses have been documented in the HPI. ROS Other: All systems not noted in ROS Statement are negative. Constitutional: Denies: fever Eyes: Denies: eye pain ENT: Denies: ear pain Respiratory: Denies: cough Cardiovascular: Reports: as per HPI. Denies: chest pain Endocrine: Denies: fatigue Gastrointestinal: Denies: abdominal pain Genitourinary: Denies: dysuria Musculoskeletal: Denies: back pain Skin: Denies: rash Neurological: Denies: weakness Past Medical History Past Medical History: Atrial Fibrillation, GERD/Reflux Additional Past Medical History / Comment(s): Bronchitis History of Any Multi-Drug Resistant Organisms: None Reported Past Surgical History: Adenoidectomy, Appendectomy, Orthopedic Surgery, Tonsillectomy Additional Past Surgical History / Comment(s): R knee arthroscopy, R femur has negro/screws Past Anesthesia/Blood Transfusion Reactions: No Reported Reaction Past Psychological History: No Psychological Hx Reported Smoking Status: Never smoker Past Alcohol Use History: Occasional Past Drug Use History: None Reported - Past Family History Mother Family Medical History: No Reported History Additional Family Medical History / Comment(s): Mother is healthy Father Family Medical History: Congestive Heart Failure (CHF), Diabetes Mellitus, Hypertension Additional Family Medical History / Comment(s): Father at the age of 73 yrs. HTN ran on pt's father's side of family. General Exam Limitations: no limitations General appearance: alert, in no apparent distress Head exam: Present: normocephalic Eye exam: Present: normal appearance Neck exam: Present: normal inspection Respiratory exam: Present: normal lung sounds bilaterally Cardiovascular Exam: Present: tachycardia, irregular rhythm GI/Abdominal exam: Present: soft. Absent: tenderness Extremities exam: Present: normal inspection Neurological exam: Present: alert Psychiatric exam: Present: normal affect, normal mood Skin exam: Present: normal color Course Vital Signs 09/23/21 16:39 Temperature 97 F L Pulse Rate 130 H Respiratory 20 Rate Blood Pressure 135/99 O2 Sat by Pulse 99 Oximetry EKG Findings - EKG Comments: EKG Findings:: A. fib with RVR, rate 1:15. QRS 96. QT 311. QTC 379. Normal axis. Lateral ST depression. Normal QRS. Medical Decision Making - Medical Decision Making Patient evaluated. Patient remains in atrial fibrillation with a rate in the 80s. Case was earlier discussed with Dr. Meyer, who will admit covering Dr. Petty. He does recommend adding heparin. Patient and family updated on results and plan. - Lab Data Result diagrams: 09/23/21 17:01 09/23/21 17:01 Lab Results 09/23/21 09/23/21 09/23/21 Range/Units 17:01 17:01 17:01 WBC 9.3 (3.8-10.6) k/uL RBC 5.29 (4.30-5.90) m/uL Hgb 14.6 (13.0-17.5) gm/dL Hct 45.7 (39.0-53.0) % MCV 86.5 (80.0-100.0) fL MCH 27.6 (25.0-35.0) pg MCHC 31.9 (31.0-37.0) g/dL RDW 13.3 (11.5-15.5) % Plt Count 267 (150-450) k/uL MPV 7.1 Neutrophils % 54 % Lymphocytes % 35 % Monocytes % 6 % Eosinophils % 2 % Basophils % 1 % Neutrophils # 5.0 (1.3-7.7) k/uL Lymphocytes # 3.3 (1.0-4.8) k/uL Monocytes # 0.5 (0-1.0) k/uL Eosinophils # 0.2 (0-0.7) k/uL Basophils # 0.1 (0-0.2) k/uL PT 10.1 (9.0-12.0) sec INR 0.9 (<1.2) APTT 23.1 (22.0-30.0) sec Sodium 139 (137-145) mmol/L Potassium 4.6 (3.5-5.1) mmol/L Chloride 110 H (98-107) mmol/L Carbon Dioxide 21 L (22-30) mmol/L Anion Gap 8 mmol/L BUN 21 H (9-20) mg/dL Creatinine 0.71 (0.66-1.25) mg/dL Est GFR (CKD-EPI)AfAm >90 (>60 ml/min/1.73 sqM) Est GFR (CKD-EPI)NonAf >90 (>60 ml/min/1.73 sqM) Glucose 102 H (74-99) mg/dL Calcium 8.9 (8.4-10.2) mg/dL Magnesium 2.2 (1.6-2.3) mg/dL Total Bilirubin 0.5 (0.2-1.3) mg/dL AST 23 (17-59) U/L ALT 34 (4-49) U/L Alkaline Phosphatase 72 (38-126) U/L Troponin I (0.000-0.034) ng/mL Total Protein 6.9 (6.3-8.2) g/dL Albumin 4.0 (3.5-5.0) g/dL TSH 1.190 (0.465-4.680) mIU/L 09/23/21 Range/Units 17:01 WBC (3.8-10.6) k/uL RBC (4.30-5.90) m/uL Hgb (13.0-17.5) gm/dL Hct (39.0-53.0) % MCV (80.0-100.0) fL MCH (25.0-35.0) pg MCHC (31.0-37.0) g/dL RDW (11.5-15.5) % Plt Count (150-450) k/uL MPV Neutrophils % % Lymphocytes % % Monocytes % % Eosinophils % % Basophils % % Neutrophils # (1.3-7.7) k/uL Lymphocytes # (1.0-4.8) k/uL Monocytes # (0-1.0) k/uL Eosinophils # (0-0.7) k/uL Basophils # (0-0.2) k/uL PT (9.0-12.0) sec INR (<1.2) APTT (22.0-30.0) sec Sodium (137-145) mmol/L Potassium (3.5-5.1) mmol/L Chloride (98-107) mmol/L Carbon Dioxide (22-30) mmol/L Anion Gap mmol/L BUN (9-20) mg/dL Creatinine (0.66-1.25) mg/dL Est GFR (CKD-EPI)AfAm (>60 ml/min/1.73 sqM) Est GFR (CKD-EPI)NonAf (>60 ml/min/1.73 sqM) Glucose (74-99) mg/dL Calcium (8.4-10.2) mg/dL Magnesium (1.6-2.3) mg/dL Total Bilirubin (0.2-1.3) mg/dL AST (17-59) U/L ALT (4-49) U/L Alkaline Phosphatase (38-126) U/L Troponin I <0.012 (0.000-0.034) ng/mL Total Protein (6.3-8.2) g/dL Albumin (3.5-5.0) g/dL TSH (0.465-4.680) mIU/L - Radiology Data Radiology results: image reviewed (Chest x-ray shows no acute process) Critical Care Time Critical Care Time: Yes Total Critical Care Time: 32 Disposition Clinical Impression: Atrial fibrillation with RVR Disposition: ADMITTED IP TO THIS [facility] Is patient prescribed a controlled substance at d/c from ED?: No Referrals: Makenzie Petty III, MD [Primary Care Provider] - 1-2 days Decision Time: 18:32
[2021-09-23 17:14] LABS: Basophils # (A) 0.1 k/uL (0-0.2); Basophils % (A) 1 %; Eosinophils # (A) 0.2 k/uL (0-0.7); Eosinophils % (A) 2 %; HCT 45.7 % (39.0-53.0); HGB 14.6 gm/dL (13.0-17.5); Lymphocytes # (A) 3.3 k/uL (1.0-4.8); Lymphocytes % (A) 35 %; MCH 27.6 pg (25.0-35.0); MCHC 31.9 g/dL (31.0-37.0); MCV 86.5 fL (80.0-100.0); Mean Platelet Volume 7.1; Monocytes # (A) 0.5 k/uL (0-1.0); Monocytes % (A) 6 %; Neutrophils % (A) 54 %; Platelet Count 267 k/uL (150-450); RBC 5.29 m/uL (4.30-5.90); RDW 13.3 % (11.5-15.5); WBC 9.3 k/uL (3.8-10.6)
--- NOTE | 2021-09-23 17:21 | XR ---
EXAMINATION TYPE: XR chest 2V DATE OF EXAM: 09/23/2021 COMPARISON: NONE HISTORY: Dysrhythmia. TECHNIQUE: 2 view FINDINGS: Heart and mediastinum are normal. Lungs are clear. Diaphragm is normal. Bony thorax appears normal. There are chest leads. IMPRESSION: Normal chest
[2021-09-23 17:23] LABS: ALT 34 U/L (4-49); AST 23 U/L (17-59); African American GFR (CKD) >90 (>60 ml/min/1.73 sqM); Alkaline Phosphatase 72 U/L (38-126); Anion Gap 8 mmol/L; Blood Urea Nitrogen 21 mg/dL (9-20); Calcium 8.9 mg/dL (8.4-10.2); Carbon Dioxide 21 mmol/L (22-30); Chloride 110 mmol/L (98-107); Glucose 102 mg/dL (74-99); Magnesium 2.2 mg/dL (1.6-2.3); Non-African American GFR(CKD) >90 (>60 ml/min/1.73 sqM); Potassium 4.6 mmol/L (3.5-5.1); Sodium 139 mmol/L (137-145); Total Bilirubin 0.5 mg/dL (0.2-1.3); Total Protein 6.9 g/dL (6.3-8.2)
[2021-09-23 17:26] LABS: INR 0.9 (<1.2); Partial Thromboplastin Time 23.1 sec (22.0-30.0); Prothrombin Time 10.1 sec (9.0-12.0)
[2021-09-23] MEDS: DILTIAZEM 125 MG in SODIUM CHLORIDE 0.9% 100 ML IV SCH (17:42)
[2021-09-23] MEDS ORDERED: HEPARIN SODIUM 1,000 UN/ML (10ML VL) IV PRN (18:32)
[2021-09-23] MEDS ORDERED: HEPARIN SODIUM 1,000 UN/ML (10ML VL) IV ONE (18:32)
[2021-09-23] MEDS ORDERED: NALOXONE 0.4 MG/ML 1 ML VIAL IV PRN (18:33)
[2021-09-23] MEDS ORDERED: HEPARIN SOD,PORK IN 0.45% NACL 25,000 UNIT in 0.45% NACL 1 250ML.BAG IV SCH (18:45)
--- NOTE | 2021-09-23 19:03 | HP ---
HISTORY AND PHYSICAL CHIEF COMPLAINT: Palpitations. HISTORY OF PRESENT ILLNESS: This 51-year-old gentleman with a past medical history of atrial fibrillation, GERD, being followed by Dr. Petty in the outpatient setting, was complaining of palpitations. Patient came in the morning and was not responding to beta blockers; heart rate still high, going up to 140 to 160. There is no history of any fever, rigors or chills. No history of headache, loss of consciousness, seizures. PAST MEDICAL HISTORY: Atrial fibrillation, GERD. HOME MEDICATIONS: Reviewed. They include Rythmol and Lopressor. Doses are reviewed. ALLERGIES: NONE. FAMILY HISTORY: No history of heart disease or strokes in the family. SOCIAL HISTORY: Occasional alcohol. REVIEW OF SYSTEMS: Fourteen-point review of systems negative except as mentioned earlier. PHYSICAL EXAMINATION: Pulse is 130, irregular. Blood pressure 130/90, respiration 20. HEENT: Conjunctivae normal. NECK: No jugular venous distention. CARDIOVASCULAR: S1, S2 irregular, tachycardic. RESPIRATION: Breath sounds diminished at the bases. No rhonchi. No crackles. ABDOMEN: Soft, nontender. LEGS: No edema. No swelling. NERVOUS SYSTEM: No focal deficit. Cranial nerves normal. SKIN: No ulcer, rash, bleeding. JOINTS: No active deforming arthropathy. LABS: CBC within normal limits. Other labs are noted. ASSESSMENT: 1. Atrial fibrillation with fast ventricular rate. 2. Gastroesophageal reflux disease. 3. History of bronchitis. 4. History of appendectomy. RECOMMENDATIONS AND DISCUSSION: In this 51-year-old gentleman who presented with multiple complex medical issues, we will monitor the patient closely. Recommend Cardizem drip and closely follow with Cardiology. Two-D echo with Doppler. Resume the home medications. Prognosis is guarded because of multiple complex medical issues. Further recommendations to follow. Will check a TSH also. MMODL / IJN: [id number] /
[2021-09-23] MEDS: FAMOTIDINE 20 MG TAB PO SCH (21:30)
[2021-09-23 22:41] LABS: Appearance,Urine Cloudy (Clear); Bacteria,Urine Rare /hpf; Bilirubin,Urine Negative (Negative); Blood,Urine Negative (Negative); Calcium Oxalate Crystals,Urine Few /hpf; Color,Urine Yellow; Glucose,Urine (UA) Negative (Negative); Hyaline Casts,Urine 2 /lpf (0-2); Ketones,Urine Negative (Negative); Leukocyte Esterase,Urine Negative (Negative); Mucus,Urine Many /hpf; Nitrite,Urine Negative (Negative); PH, Urine 5.5 (5.0-8.0); Protein,Urine Trace (Negative); RBC,Urine 1 /hpf (0-5); Specific Gravity,Urine 1.031 (1.001-1.035); Squamous Epithelial Cell,Urine 1 /hpf (0-4); Urobilinogen,Urine <2.0 mg/dL (<2.0); WBC,Urine 2 /hpf (0-5)
[2021-09-24] MEDS: FAMOTIDINE 20 MG TAB PO SCH ×2 (08:22→20:31)
[2021-09-24 09:05] LABS: Basophils # (A) 0.1 k/uL (0-0.2); Basophils % (A) 1 %; Eosinophils # (A) 0.2 k/uL (0-0.7); Eosinophils % (A) 2 %; HGB 13.9 gm/dL (13.0-17.5); Lymphocytes # (A) 3.1 k/uL (1.0-4.8); Lymphocytes % (A) 39 %; MCH 27.7 pg (25.0-35.0); MCHC 30.9 g/dL (31.0-37.0); MCV 89.5 fL (80.0-100.0); Mean Platelet Volume 7.6; Monocytes # (A) 0.4 k/uL (0-1.0); Monocytes % (A) 5 %; Neutrophils % (A) 51 %; Platelet Count 224 k/uL (150-450); RBC 5.03 m/uL (4.30-5.90); RDW 13.4 % (11.5-15.5); WBC 7.9 k/uL (3.8-10.6)
[2021-09-24 09:15] LABS: INR 0.9 (<1.2); Prothrombin Time 10.2 sec (9.0-12.0)
[2021-09-24] MEDS: DILTIAZEM 125 MG in SODIUM CHLORIDE 0.9% 100 ML IV SCH (09:20)
[2021-09-24] MEDS ORDERED: METOPROLOL TARTRATE 25 MG TAB PO SCH (09:30)
[2021-09-24 09:31] LABS: African American GFR (CKD) >90 (>60 ml/min/1.73 sqM); Anion Gap 6 mmol/L; Blood Urea Nitrogen 17 mg/dL (9-20); Calcium 8.9 mg/dL (8.4-10.2); Carbon Dioxide 24 mmol/L (22-30); Chloride 110 mmol/L (98-107); Glucose 123 mg/dL (74-99); Non-African American GFR(CKD) >90 (>60 ml/min/1.73 sqM); Potassium 4.4 mmol/L (3.5-5.1); Sodium 140 mmol/L (137-145)
--- NOTE | 2021-09-24 11:48 | P.CRDCN ---
History of Present Illness Consult date: 09/24/21 History of present illness: HISTORY OF PRESENT ILLNESS: This is a 51-year-old male with a past medical history significant for with paroxysmal atrial fibrillation, former nicotine use, and occasional alcohol use. Patient follows in the office with Dr. Brewster. We have been asked to see the patient in consultation for A. fib with RVR. Patient examined at the bedside. He presented to the hospital with a chief complaint of palpitations. Patient initially presented to the hospital on 09/23/2021. The patient was found to be in A. fib with RVR. Patient's heart rate was controlled in the emergency room and he was discharged home. The patient presented back to the hospital with complaints of the patient's. Patient was found to be in A. fib with RVR. He was started on IV Cardizem and IV heparin. This morning the patient remains in atrial fibrillation with a heart rate in the 70s. He denies chest pain or pressure. He denies shortness of breath. * EKG reveals A. fib with RVR * Chest xray negative for acute process * Laboratory data: WBC 7.9. Hemoglobin 13.9. Platelet count 124. Sodium 139. Potassium 4.6. BUN 21. Creatinine 0.71. Magnesium 2.2. Troponin negative 1. TSH 1.170. * Current home cardiac medications include metoprolol tartrate 25 mg daily and aspirin 81 mg daily * Most recent echocardiogram obtained in June 2019 revealed ejection fraction 55-60%, trace MR, trace TR * Patient underwent dobutamine stress test in December 2019 which was negative for ischemia REVIEW OF SYSTEMS: At the time of my exam: CONSTITUTIONAL: Denies fever or chills. HEENT: Denies blurred vision, vision changes, or eye pain. Denies hemoptysis CARDIOVASCULAR: Denies chest pain. Denies orthopnea. Denies PND. Denies palpitations RESPIRATORY: Denies shortness of breath. GASTROINTESTINAL: Denies abdominal pain. Denies nausea or vomiting. HEMATOLOGIC: Denies bleeding disorders. GENITOURINARY: Denies any blood in urine. SKIN: Denies pruitis. Denies rash. PHYSICAL EXAM: VITAL SIGNS: Reviewed. GENERAL: Well-developed in no acute distress. HEENT: Head is normocephalic. Pupils are equal, round. Sclerae anicteric. Mucous membranes of the mouth are moist. Neck supple. No JVD or thyromegaly LUNGS: Respirations even and unlabored. Lungs essentially clear to auscultation bilaterally. HEART: Irregular rate and rhythm. S1 and S2 heard. ABDOMEN: Soft. Nondistended. Nontender. EXTREMITIES: Normal range of motion. No clubbing or cyanosis. Peripheral pulses intact. No lower extremity edema NEUROLOGIC: Awake and alert. Oriented x 3. ASSESSMENT: Paroxysmal atrial fibrillation with RVR Former nicotine use Frequent alcohol use PLAN: Obtain 2-D echo to assess cardiac structure and function Discontinue IV Cardizem Resume metoprolol. Increase dosage to 25 mg twice a day Continue telemetry monitoring Discontinue IV heparin. Patient has a chadsvasc of 0. Begin flecainide 50 mg every 12 hours Recommend abstinence from alcohol Further recommendations pending patient's course Nurse practitioner note has been reviewed by physician. Signing provider agrees with the documented findings, assessment, and plan of care. Past Medical History Past Medical History: Atrial Fibrillation, GERD/Reflux Additional Past Medical History / Comment(s): Bronchitis History of Any Multi-Drug Resistant Organisms: None Reported Past Surgical History: Adenoidectomy, Appendectomy, Orthopedic Surgery, Tonsil lectomy Additional Past Surgical History / Comment(s): R knee arthroscopy, R femur has negro/screws Past Anesthesia/Blood Transfusion Reactions: No Reported Reaction Past Psychological History: No Psychological Hx Reported Additional Psychological History / Comment(s): Pt resides with spouse and his m other lives with them. Pt is independent. Smoking Status: Former smoker Past Alcohol Use History: Occasional Additional Past Alcohol Use History / Comment(s): Pt started smoking in 1982 and quit in 2019 Past Drug Use History: None Reported - Past Family History Mother Family Medical History: No Reported History Additional Family Medical History / Comment(s): Mother is healthy Father Family Medical History: Congestive Heart Failure (CHF), Diabetes Mellitus, Hypertension Additional Family Medical History / Comment(s): Father at the age of 73 yrs. HTN ran on pt's father's side of family. Medications and Allergies Home Medications Medication Instructions Recorded Confirmed Type Aspirin 81 mg PO DAILY #30 chew 07/06/19 09/23/21 Rx Ascorbic Acid [Vitamin C] 1,000 mg PO HS 09/23/21 09/23/21 History Metoprolol Tartrate [Lopressor] 25 mg PO DAILY 09/23/21 09/23/21 History Multivitamins, Thera [Multivitamin 1 tab PO HS 09/23/21 09/23/21 History (formulary)] Vitamin B Complex 1 cap PO DAILY 09/23/21 09/23/21 History Zinc Gluconate [Zinc] 50 mg PO DAILY 09/23/21 09/23/21 History Allergies Allergy/AdvReac Type Severity Reaction Status Date / Time No Known Allergies Allergy Verified 09/23/21 18:33 Physical Exam Vitals: Vital Signs Temp Pulse Pulse Resp BP BP Pulse Ox 09/24/21 08:24 98.3 F 82 16 129/81 98 09/24/21 04:30 98.4 F 78 18 117/84 96 09/23/21 23:50 97.6 F 86 17 128/74 97 09/23/21 20:30 98.2 F 80 18 121/77 97 09/23/21 19:41 88 22 113/62 98 09/23/21 16:39 97 F L 130 H 20 135/99 99 Intake and Output 09/23/21 09/24/21 09/24/21 22:59 06:59 14:59 Intake Total 60.982 420 Balance 60.982 420 Intake: Intake, IV Titration 60.982 Amount Heparin Sod,Pork in 0.45% 60.982 NaCl 25,000 unit In 0.45 % NaCl 1 250ml.bag @ 9.07 UNITS/KG/HR 9.997 mls/hr IV .Q24H [facility] Rx#: [id number] Oral 420 Other: Voiding Method Toilet # Voids 1 1 Weight 110.223 kg Results 09/24/21 07:44 09/24/21 07:44 Cardiac Enzymes 09/23/21 09/23/21 Range/Units 17:01 17:01 AST 23 (17-59) U/L Troponin I <0.012 (0.000-0.034) ng/mL Coagulation 09/23/21 09/24/21 09/24/21 Range/Units 17:01 00:56 07:44 PT 10.1 10.2 (9.0-12.0) sec APTT 23.1 30.2 H (22.0-30.0) sec 09/24/21 Range/Units 07:44 PT (9.0-12.0) sec APTT 46.1 H (22.0-30.0) sec CBC 09/23/21 09/24/21 Range/Units 17:01 07:44 WBC 9.3 7.9 (3.8-10.6) k/uL RBC 5.29 5.03 (4.30-5.90) m/uL Hgb 14.6 13.9 (13.0-17.5) gm/dL Hct 45.7 45.0 (39.0-53.0) % Plt Count 267 224 (150-450) k/uL Comprehensive Metabolic Panel 09/23/21 Range/Units 17:01 Sodium 139 (137-145) mmol/L Potassium 4.6 (3.5-5.1) mmol/L Chloride 110 H (98-107) mmol/L Carbon Dioxide 21 L (22-30) mmol/L BUN 21 H (9-20) mg/dL Creatinine 0.71 (0.66-1.25) mg/dL Glucose 102 H (74-99) mg/dL Calcium 8.9 (8.4-10.2) mg/dL AST 23 (17-59) U/L ALT 34 (4-49) U/L Alkaline Phosphatase 72 (38-126) U/L Total Protein 6.9 (6.3-8.2) g/dL Albumin 4.0 (3.5-5.0) g/dL Current Medications Generic Name Dose Route Start Last Admin Trade Name Freq PRN Reason Stop Dose Admin Famotidine 20 mg 09/23/21 21:00 09/24/21 08:22 Famotidine 20 Mg Tab PO 20 mg BID ANTOINE Administration Heparin Sodium (Porcine) 0 unit 09/23/21 18:32 09/24/21 01:52 Heparin Sodium 1,000 Un/Ml (10ml Vl) IV 4,000 unit PER PROTOCOL PRN Administration Low PTT Protocol Diltiazem HCl 125 mg/ Sodium 125 mls @ 5 mls/hr 09/23/21 17:00 09/23/21 17:42 Chloride IV 5 mg/hr .Q24H ANTOINE 5 mls/hr Administration 5 MG/HR Heparin Sodium/Sodium Chloride 250 mls @ 9.997 mls/hr 09/23/21 18:45 09/24/21 01:47 25,000 unit/ Sodium Chloride IV 12.07 units/kg/hr .Q24H ANTOINE 13.304 mls/hr Titration Protocol 9.07 UNITS/KG/HR Naloxone HCl 0.2 mg 09/23/21 18:33 Naloxone 0.4 Mg/Ml 1 Ml Vial IV Q2M PRN Opioid Reversal Intake and Output 09/23/21 09/24/21 09/24/21 22:59 06:59 14:59 Intake Total 60.982 420 Balance 60.982 420 Intake: Intake, IV Titration 60.982 Amount Heparin Sod,Pork in 0.45% 60.982 NaCl 25,000 unit In 0.45 % NaCl 1 250ml.bag @ 9.07 UNITS/KG/HR 9.997 mls/hr IV .Q24H [facility] Rx#: [id number] Oral 420 Other: Voiding Method Toilet # Voids 1 1 Weight 110.223 kg 09/24/21 07:44 09/23/21 17:01
[2021-09-24] MEDS: FLECAINIDE 50 MG TAB PO SCH ×2 (11:50→20:30)
--- NOTE | 2021-09-24 12:00 | ECHOF ---
Referral Reason:afib MEASUREMENTS -------- HEIGHT: 182.9 cm WEIGHT: 110.2 kg BP: RVIDd: 3.8 cm (< 3.3) IVSd: 1.3 cm (0.6 - 1.1) LVIDd: 4.5 cm (3.9 - 5.3) LVPWd: 1.3 cm (0.6 - 1.1) IVSs: 1.6 cm LVIDs: 4.2 cm LVPWs: 1.5 cm LA Diam: 4.1 cm (2.7 - 3.8) LAESV Index (A-L): 44.88 ml/m Ao Diam: 4.3 cm (2.0 - 3.7) AV Cusp: 2.0 cm (1.5 - 2.6) LA Diam: 4.7 cm (2.7 - 3.8) MV EXCURSION: 19.176 mm (> 18.000) MV EF SLOPE: 114 mm/s (70 - 150) EPSS: 0.4 cm RAP: 5.00 mmHg RVSP: 25.48 mmHg FINDINGS -------- Atrial fibrillation. This was a technically adequate study. The left ventricular size is normal. There is mild concentric left ventricular hypertrophy. Overa ll left ventricular systolic function is mildly impaired with, an EF between 45 - 50 %. The right ventricle is normal in size. LA is moderately dilated 34-39 ml/m2 The right atrial size is normal. The aortic valve is trileaflet, and appears structurally normal. No aortic stenosis or regurgitation. Mild mitral regurgitation is present. Mild tricuspid regurgitation present. Right ventricular systolic pressure is normal at < 35 mmHg. Trace/mild (physiologic) pulmonic regurgitation. There is no pericardial effusion. CONCLUSIONS -------- 1. The left ventricular size is normal. 2. There is mild concentric left ventricular hypertrophy. 3. Overall left ventricular systolic function is mildly impaired with, an EF between 45 - 50 %. 4. The right ventricle is normal in size. 5. LA is moderately dilated 34-39 ml/m2 6. The right atrial size is normal. 7. The aortic valve is trileaflet, and appears structurally normal. No aortic stenosis or regurgitati on. 8. Mild mitral regurgitation is present. 9. Mild tricuspid regurgitation present. 10. Trace/mild (physiologic) pulmonic regurgitation. 11. There is no pericardial effusion. LITHOGRAPHER APPRENTICE: Azra Juarez RDCS
[2021-09-24] MEDS ORDERED: METOPROLOL TARTRATE 50 MG TAB PO STA (16:31)
--- NOTE | 2021-09-24 18:18 | P.PN ---
Subjective Progress Note Date: 09/24/21 This is a 51 year old male who was admitted with palpitations and is being closely monitored. Patient being evaluated by cardiology and currently on IV cardizem and IV heparin. Patient was in atrial fibrillation with RVR. Patient follows with Dr. Karmen Brewster cardiology and was maintained on Metoprolol once daily. No anticoagulation based on his chadvasc score being zero. Patient reports to feeling better today than when he came in. Patient to be transitioned to oral metoprolol and increased along with flecainide. DC heparin per cardiology. Review of systems: Constitutional: No reports of fatigue, fever, or chills Cardiovascular: No reports of chest pain or further palpitations Respiratory: No reports of shortness of breath or cough GI: reports of nausea, no reports of of vomiting, no reports of diarrhea : No reports of dysuria or retention Neurovascular: no reports of generalized weakness Active Medications Aspirin (Aspirin 81 Mg) 81 mg PO DAILY [facility] [place] Famotidine (Famotidine 20 Mg Tab) 20 mg PO BID [facility] [place] Last Admin: 09/24/21 08:22 Dose: 20 mg Documented by: Flecainide Acetate (Flecainide 50 Mg Tab) 50 mg PO Q12HR [facility] [place] Last Admin: 09/24/21 11:50 Dose: 50 mg Documented by: Heparin Sodium (Porcine) (Heparin Sodium 1,000 Un/Ml (10ml Vl)) 0 unit IV PER P ROTOCOL PRN; Protocol PRN Reason: Low PTT Last Admin: 09/24/21 01:52 Dose: 4,000 unit Documented by: Metoprolol Tartrate (Metoprolol Tartrate 50 Mg Tab) 50 mg PO BID [facility] [place] Naloxone HCl (Naloxone 0.4 Mg/Ml 1 Ml Vial) 0.2 mg IV Q2M PRN PRN Reason: Opioid Reversal PHYSICAL EXAMINATION: GENERAL: The patient is alert and oriented x4, Well developed, well nourished. Obese HEENT: Pupils are round and equally reacting to light. EOMI. no scleral icterus. No conjunctival pallor. Normocephalic, atraumatic. No pharyngeal erythema. No thyromegaly. CARDIOVASCULAR: S1 and S2 muffled PULMONARY: diminished breath sounds bilaterally with no wheezing or rhonchi noted. ABDOMEN: soft. Nontender on exam. obese. non-distended, normoactive bowel sounds. No palpable organomegaly. MUSCULOSKELETAL: No joint swelling or deformity. EXTREMITIES: No cyanosis, clubbing, or pedal edema. NEUROLOGICAL: Gross neurological examination did not reveal any focal deficits. SKIN: No rashes. Assessment: Atrial fibrillation with fast ventricular rate Gastroesophageal reflux disease History of bronchitis History of appendectomy Obesity with a BMI of 33.0 GI prophylaxis DVT prophylaxis Full code Plan: Recommend to continue with current medications and management per cardiology. Patient has been seen by cardio and heparin discontinued. Patient metoprolol increased and started on flecainide. Recommend to continue telemetry monitoring and close monitoring of vital signs and observe closely overnight with possible discharge in 24 hours. Patient had an episode of his heart rate going to 140 while getting up to the bathroom. 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 Brewster in the outpatient setting. The impression and plan of care has been dictated by Penny Kemp, nurse practitioner as directed. MD Frank I have performed a history and examination and MDM of this patient, discussed the same with the dictator, and agree with the dictator's assessment and plan as written ,documented as a scribe. Based on total visit time, I have performed more than 50% of the visit. Any additional findings or plans will be noted. Objective - Vital Signs Vital signs: Vital Signs Temp 98.1 F 09/24/21 11:45 Pulse 82 09/24/21 11:45 Resp 18 09/24/21 11:45 BP 124/83 09/24/21 11:45 Pulse Ox 98 09/24/21 11:45 Intake & Output 09/23/21 09/24/21 09/24/21 18:59 06:59 18:59 Intake Total 60.982 633.981 Balance 60.982 633.981 Weight 110.223 kg 110.223 kg Intake: Intake, IV Titration 60.982 213.981 Amount Diltiazem 125 mg In 79.167 Sodium Chloride 0.9% 100 ml @ 5 MG/HR 5 mls/hr IV .Q24H ANTOINE Rx#:[id number] Heparin Sod,Pork in 0.45% 60.982 134.814 NaCl 25,000 unit In 0.45 % NaCl 1 250ml.bag @ 9.07 UNITS/KG/HR 9.997 mls/hr IV .Q24H ANTOINE Rx#: [id number] Oral 420 Other: Voiding Method Toilet # Voids 1 3 # Bowel Movements 1 - Labs CBC & Chem 7: 09/24/21 07:44 09/24/21 07:44 Labs: Abnormal Lab Results - Last 24 Hours (Table) 09/23/21 09/23/21 09/24/21 Range/Units 17:01 22:22 00:56 MCHC (31.0-37.0) g/dL APTT 30.2 H (22.0-30.0) sec Chloride 110 H (98-107) mmol/L Carbon Dioxide 21 L (22-30) mmol/L BUN 21 H (9-20) mg/dL Glucose 102 H (74-99) mg/dL Urine Protein Trace H (Negative) Calcium Oxalate Crystal Few H (None) /hpf Urine Bacteria Rare H (None) /hpf Urine Mucus Many H (None) /hpf 09/24/21 09/24/21 09/24/21 Range/Units 07:44 07:44 07:44 MCHC 30.9 L (31.0-37.0) g/dL APTT 46.1 H (22.0-30.0) sec Chloride 110 H (98-107) mmol/L Carbon Dioxide (22-30) mmol/L BUN (9-20) mg/dL Glucose 123 H (74-99) mg/dL Urine Protein (Negative) Calcium Oxalate Crystal (None) /hpf Urine Bacteria (None) /hpf Urine Mucus (None) /hpf
[2021-09-24] MEDS: METOPROLOL TARTRATE 50 MG TAB PO SCH (20:31)
[2021-09-25] MEDS: ASPIRIN 81 MG PO SCH (07:50)
[2021-09-25] MEDS: FLECAINIDE 50 MG TAB PO SCH ×2 (07:50→20:22)
[2021-09-25] MEDS: METOPROLOL TARTRATE 50 MG TAB PO SCH (07:51)
[2021-09-25] MEDS: FAMOTIDINE 20 MG TAB PO SCH ×2 (07:51→20:22)
[2021-09-25] MEDS ORDERED: METOPROLOL TARTRATE 25 MG TAB PO STA (08:24)
--- NOTE | 2021-09-25 14:25 | P.PN ---
Subjective Progress Note Date: 09/25/21 HISTORY OF PRESENT ILLNESS: This is a 51-year-old male with a past medical history significant for with paroxysmal atrial fibrillation, former nicotine use, and occasional alcohol use. Patient follows in the office with Dr. Brewster. We have been asked to see the patient in consultation for A. fib with RVR. Patient examined at the bedside. He presented to the hospital with a chief complaint of palpitations. Patient initially presented to the hospital on 09/23/2021. The patient was found to be in A. fib with RVR. Patient's heart rate was controlled in the emergency room and he was discharged home. The patient presented back to the hospital with complaints of the patient's. Patient was found to be in A. fib with RVR. He was started on IV Cardizem and IV heparin. This morning the patient remains in atrial fibrillation with a heart rate in the 70s. He denies chest pain or pressure. He denies shortness of breath. * EKG reveals A. fib with RVR * Chest xray negative for acute process * Laboratory data: WBC 7.9. Hemoglobin 13.9. Platelet count 124. Sodium 139. Potassium 4.6. BUN 21. Creatinine 0.71. Magnesium 2.2. Troponin negative 1. TSH 1.170. * Current home cardiac medications include metoprolol tartrate 25 mg daily and aspirin 81 mg daily * Most recent echocardiogram obtained in June 2019 revealed ejection fraction 55-60%, trace MR, trace TR * Patient underwent dobutamine stress test in December 2019 which was negative for ischemia 09/25/2021 Patient examined this afternoon at the bedside. Patient denies chest pain or pressure. He denies shortness of breath. Patient's heart rate this morning was uncontrolled with a ventricular rate in the 120s. Patient's metoprolol was increased to 75 mg twice a day. Patients heart rate is better controlled this afternoon with a heart rate in the 90s. Patient has been up ambulating in the hallway. Echocardiogram completed revealing ejection fraction 45-50%, mild MR, mild TR. PHYSICAL EXAM: VITAL SIGNS: Reviewed. GENERAL: Well-developed in no acute distress. HEENT: Head is normocephalic. Pupils are equal, round. Sclerae anicteric. Mucous membranes of the mouth are moist. Neck supple. No JVD or thyromegaly LUNGS: Respirations even and unlabored. Lungs essentially clear to auscultation bilaterally. HEART: Irregular rate and rhythm. S1 and S2 heard. ABDOMEN: Soft. Nondistended. Nontender. EXTREMITIES: Normal range of motion. No clubbing or cyanosis. Peripheral pulses intact. No lower extremity edema NEUROLOGIC: Awake and alert. Oriented x 3. ASSESSMENT: Paroxysmal atrial fibrillation with RVR Former nicotine use Frequent alcohol use Mild cardiomyopathy, unclear of ischemic or nonischemic, may be secondary to A. fib with RVR PLAN: Continue flecainide Metoprolol increased this morning to 75 mg twice a day Continue telemetry monitoring Further recommendations pending evaluation by Dr. Ritter this afternoon Nurse practitioner note has been reviewed by physician. Signing provider agrees with the documented findings, assessment, and plan of care. Objective - Vital Signs Vital signs: Vital Signs Temp 97.7 F 09/25/21 10:56 Pulse 110 H 09/25/21 10:56 Resp 18 09/25/21 10:56 BP 112/56 09/25/21 10:56 Pulse Ox 98 09/25/21 10:56 Intake & Output 09/24/21 09/25/21 09/25/21 18:59 06:59 18:59 Intake Total 813.981 420 Balance 813.981 420 Intake: Intake, IV Titration 213.981 Amount Diltiazem 125 mg In 79.167 Sodium Chloride 0.9% 100 ml @ 5 MG/HR 5 mls/hr IV .Q24H ANTOINE Rx#:[id number] Heparin Sod,Pork in 0.45% 134.814 NaCl 25,000 unit In 0.45 % NaCl 1 250ml.bag @ 9.07 UNITS/KG/HR 9.997 mls/hr IV .Q24H ANTOINE Rx#: [id number] Oral 600 420 Other: Voiding Method Toilet Toilet # Voids 3 1 # Bowel Movements 1 - Labs CBC & Chem 7: 09/24/21 07:44 09/24/21 07:44
--- NOTE | 2021-09-25 16:45 | P.PN ---
Subjective Progress Note Date: 09/25/21 This is a 51 year old male who was admitted with palpitations and is being closely monitored. Patient being evaluated by cardiology and currently on IV cardizem and IV heparin. Patient was in atrial fibrillation with RVR. Patient follows with Dr. Karmen Brewster cardiology and was maintained on Metoprolol once daily. No anticoagulation based on his chadvasc score being zero. Patient reports to feeling better today than when he came in. Patient to be transitioned to oral metoprolol and increased along with flecainide. DC heparin per cardiology. 09/25/2021 Patient is seen and evaluated in follow-up this morning with cardiology following closely. Patient continues to have elevated heart rate into the 110's and 140s and maintained on metoprolol and flecainide. Cardiology evaluating and has increased metoprolol to 75 mg twice daily and will continue to monitor. Recommend telemetry monitoring to be continued at this time. Encouraged increased activity. Patient denied chest pain or shortness of breath. Patient is afebrile. Patient at the bedside and questions and concerns were answered. Review of systems: Constitutional: No reports of fatigue, fever, or chills Cardiovascular: No reports of chest pain, reports occasional feelings of palpitations Respiratory: No reports of shortness of breath or cough GI: reports of nausea, no reports of of vomiting, no reports of diarrhea : No reports of dysuria or retention Neurovascular: no reports of generalized weakness Active Medications Aspirin (Aspirin 81 Mg) 81 mg PO DAILY [facility] Last Admin: 09/25/21 07:50 Dose: 81 mg Documented by: Famotidine (Famotidine 20 Mg Tab) 20 mg PO BID [facility] Last Admin: 09/25/21 07:51 Dose: 20 mg Documented by: Flecainide Acetate (Flecainide 50 Mg Tab) 50 mg PO Q12HR [facility] Last Admin: 09/25/21 07:50 Dose: 50 mg Documented by: Heparin Sodium (Porcine) (Heparin Sodium 1,000 Un/Ml (10ml Vl)) 0 unit IV PER PROTOCOL PRN; Protocol PRN Reason: Low PTT Last Admin: 09/24/21 01:52 Dose: 4,000 unit Documented by: Metoprolol Tartrate (Metoprolol Tartrate 25 Mg Tab) 75 mg PO BID [facility] Naloxone HCl (Naloxone 0.4 Mg/Ml 1 Ml Vial) 0.2 mg IV Q2M PRN PRN Reason: Opioid Reversal PHYSICAL EXAMINATION: GENERAL: The patient is alert and oriented x4, Well developed, well nourished. Obese HEENT: Pupils are round and equally reacting to light. EOMI. no scleral icterus. No conjunctival pallor. Normocephalic, atraumatic. No pharyngeal erythema. No thyromegaly. CARDIOVASCULAR: S1 and S2 muffled, irregular rate and rhythm PULMONARY: diminished breath sounds bilaterally with no wheezing or rhonchi noted. ABDOMEN: soft. Nontender on exam. obese. non-distended, normoactive bowel sounds. No palpable organomegaly. MUSCULOSKELETAL: No joint swelling or deformity. EXTREMITIES: No cyanosis, clubbing, or pedal edema. NEUROLOGICAL: Gross neurological examination did not reveal any focal deficits. SKIN: No rashes. Assessment: Atrial fibrillation with fast ventricular rate Gastroesophageal reflux disease History of bronchitis History of appendectomy Obesity with a BMI of 33.0 GI prophylaxis DVT prophylaxis Full code Plan: Recommend to continue with current medications and management per cardiology. Patient has been seen by cardio and heparin discontinued. Patient metoprolol increased to 75mg BID and will continue on flecainide as well. Recommend to c ontinue telemetry monitoring and close monitoring of vital signs and observe closely overnight with possible discharge in 24 hours. Patient continues to have episodes of his heart rate going to 140 while getting up. 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 Brewster in the outpatient setting. The impression and plan of care has been dictated by Penny Kemp, nurse practitioner as directed. MD Frank I have performed a history and examination and MDM of this patient, discussed the same with the dictator, and agree with the dictator's assessment and plan as written ,documented as a scribe. Based on total visit time, I have performed more than 50% of the visit. Any additional findings or plans will be noted. Objective - Vital Signs Vital signs: Vital Signs Temp 98.2 F 09/25/21 07:49 Pulse 110 H 09/25/21 07:49 Resp 16 09/25/21 07:49 BP 111/73 09/25/21 07:49 Pulse Ox 96 09/25/21 07:49 Intake & Output 09/24/21 09/25/21 09/25/21 18:59 06:59 18:59 Intake Total 813.981 180 Balance 813.981 180 Intake: Intake, IV Titration 213.981 Amount Diltiazem 125 mg In 79.167 Sodium Chloride 0.9% 100 ml @ 5 MG/HR 5 mls/hr IV .Q24H [facility] Rx#:[id number] Heparin Sod,Pork in 0.45% 134.814 NaCl 25,000 unit In 0.45 % NaCl 1 250ml.bag @ 9.07 UNITS/KG/HR 9.997 mls/hr IV .Q24H ANTOINE Rx#: [id number] Oral 600 180 Other: Voiding Method Toilet Toilet # Voids 3 1 # Bowel Movements 1 - Labs CBC & Chem 7: 09/24/21 07:44 09/24/21 07:44 Labs: Abnormal Lab Results - Last 24 Hours (Table) 09/24/21 09/24/21 Range/Units 07:44 07:44 APTT 46.1 H (22.0-30.0) sec Chloride 110 H (98-107) mmol/L Glucose 123 H (74-99) mg/dL
[2021-09-25] MEDS: METOPROLOL TARTRATE 25 MG TAB PO SCH (20:22)
[2021-09-26] MEDS: ASPIRIN 81 MG PO SCH (09:46)
[2021-09-26] MEDS: FLECAINIDE 50 MG TAB PO SCH (09:46)
[2021-09-26] MEDS: METOPROLOL TARTRATE 25 MG TAB PO SCH (09:46)
[2021-09-26] MEDS: FAMOTIDINE 20 MG TAB PO SCH (09:46)
[2021-09-26 12:28] VITALS: RESP 16; TEMP 98.3
[2021-09-26 12:29] VITALS: BP 94/67; PULSE 74
--- NOTE | 2021-09-26 13:38 | P.PN ---
Subjective Progress Note Date: 09/26/21 HISTORY OF PRESENT ILLNESS: This is a 51-year-old male with a past medical history significant for with paroxysmal atrial fibrillation, former nicotine use, and occasional alcohol use. Patient follows in the office with Dr. Brewster. We have been asked to see the patient in consultation for A. fib with RVR. Patient examined at the bedside. He presented to the hospital with a chief complaint of palpitations. Patient initially presented to the hospital on 09/23/2021. The patient was found to be in A. fib with RVR. Patient's heart rate was controlled in the emergency room and he was discharged home. The patient presented back to the hospital with complaints of the patient's. Patient was found to be in A. fib with RVR. He was started on IV Cardizem and IV heparin. This morning the patient remains in atrial fibrillation with a heart rate in the 70s. He denies chest pain or pressure. He denies shortness of breath. * EKG reveals A. fib with RVR * Chest xray negative for acute process * Laboratory data: WBC 7.9. Hemoglobin 13.9. Platelet count 124. Sodium 139. Potassium 4.6. BUN 21. Creatinine 0.71. Magnesium 2.2. Troponin negative 1. TSH 1.170. * Current home cardiac medications include metoprolol tartrate 25 mg daily and aspirin 81 mg daily * Most recent echocardiogram obtained in June 2019 revealed ejection fraction 55-60%, trace MR, trace TR * Patient underwent dobutamine stress test in December 2019 which was negative for ischemia 09/25/2021 Patient examined this afternoon at the bedside. Patient denies chest pain or pressure. He denies shortness of breath. Patient's heart rate this morning was uncontrolled with a ventricular rate in the 120s. Patient's metoprolol was increased to 75 mg twice a day. Patients heart rate is better controlled this afternoon with a heart rate in the 90s. Patient has been up ambulating in the hallway. Echocardiogram completed revealing ejection fraction 45-50%, mild MR, mild TR. 09/26/2021 Patient examined this morning at the bedside. Patient denies chest pain or pressure. He denies shortness of breath. Heart rates are better controlled today. He remains in atrial fibrillation. Blood pressure is stable with a systolic in the 90s. Patient denies any dizziness or lightheadedness. PHYSICAL EXAM: VITAL SIGNS: Reviewed. GENERAL: Well-developed in no acute distress. HEENT: Head is normocephalic. Pupils are equal, round. Sclerae anicteric. Mucous membranes of the mouth are moist. Neck supple. No JVD or thyromegaly LUNGS: Respirations even and unlabored. Lungs essentially clear to auscultation bilaterally. HEART: Irregular rate and rhythm. S1 and S2 heard. ABDOMEN: Soft. Nondistended. Nontender. EXTREMITIES: Normal range of motion. No clubbing or cyanosis. Peripheral pulses intact. No lower extremity edema NEUROLOGIC: Awake and alert. Oriented x 3. ASSESSMENT: Paroxysmal atrial fibrillation with RVR Former nicotine use Frequent alcohol use Mild cardiomyopathy, unclear of ischemic or nonischemic, may be secondary to A. fib with RVR PLAN: Continue current cardiac medications Patient may be discharged home today from a cardiac standpoint and follow up on an outpatient basis with Dr. Brewster. Nurse practitioner note has been reviewed by physician. Signing provider agrees with the documented findings, assessment, and plan of care. Objective - Vital Signs Vital signs: Vital Signs Temp 98.3 F 09/26/21 09:30 Pulse 74 09/26/21 11:10 Resp 16 09/26/21 11:10 BP 94/67 09/26/21 11:10 Pulse Ox 96 09/26/21 11:10 Intake & Output 09/25/21 09/26/21 09/26/21 18:59 06:59 18:59 Intake Total 1200 118 Balance 1200 118 Intake: Oral 1200 118 Other: Voiding Method Toilet Toilet # Voids 1 - Labs CBC & Chem 7: 09/24/21 07:44 09/24/21 07:44
--- NOTE | 2021-09-26 17:07 | P.DS ---
Providers Date of admission: 09/23/21 18:33 Expected date of discharge: 09/26/21 Attending physician: Dre Meyer Consults: 09/23/21 17:40 Consult Physician Routine Consulting Provider: Anne-Marie Grimes Consult Reason/Comments: afib Do you want consulting provider notified?: Yes Primary care physician: Makenzie Petty Hospital Course: Final Diagnosis Atrial fibrillation with fast ventricular rate Gastroesophageal reflux disease History of bronchitis History of appendectomy Obesity with a BMI of 33.0 GI prophylaxis DVT prophylaxis Full code Discharge disposition Patient is being discharged in a stable condition with guarded prognosis to home. Patient to follow up with Dr. Petty upon discharge. Patient will follow- up with Dr. Karmen Brewster cardiology in the outpatient setting upon discharge. Total time taken is greater than 35 minutes. Hospital course This is a 51-year-old male who was recently admitted with rapid heart rate and palpitations and found to be in atrial fibrillation with RVR. Patient was started on IV heparin and IV cardizem and evaluated by cardiology. Patient transitioned to metoprolol and will continue with 75mg BID and also Flecainide 50 bid and follow up closely with cardiology. Currently no reports of chest pain, shortness of breath, or palpitations. Patient is afebrile. No reports of nausea or vomiting and patient is tolerating diet. Patient will be discharged home today. Guarded prognosis. On exam vital signs are stable. Cardio S1, S2 are muffled. Respiratory system shows diminished breath sounds at the bases with no wheezing or rhonchi noted. Abdomen is soft and obese, and nontender. Nervous system shows no focal deficits. Please refer to medication reconciliation sheet for a list of medications. The impression and plan of care has been dictated as a scribe by Penny Kemp, nurse practitioner as directed. MD Frank I have performed a history and examination and MDM of this patient, discussed the same with the dictator ,documented as a scribe. Based on total visit time, I have performed more than 50% of the visit. Patient Condition at Discharge: Stable Plan - Discharge Summary Discharge Rx Participant: No New Discharge Prescriptions: New Metoprolol Tartrate [Lopressor] 75 mg PO BID 30 Days #180 tab Flecainide [Tambocor] 50 mg PO Q12HR #60 tab Continue Aspirin 81 mg PO DAILY #30 chew Zinc Gluconate [Zinc] 50 mg PO DAILY Vitamin B Complex 1 cap PO DAILY Ascorbic Acid [Vitamin C] 1,000 mg PO HS Multivitamins, Thera [Multivitamin (formulary)] 1 tab PO HS Discontinued Metoprolol Tartrate [Lopressor] 25 mg PO DAILY Discharge Medication List Aspirin 81 mg PO DAILY #30 chew 07/06/19 [Rx] Ascorbic Acid [Vitamin C] 1,000 mg PO HS 09/23/21 [History] Multivitamins, Thera [Multivitamin (formulary)] 1 tab PO HS 09/23/21 [History] Vitamin B Complex 1 cap PO DAILY 09/23/21 [History] Zinc Gluconate [Zinc] 50 mg PO DAILY 09/23/21 [History] Flecainide [Tambocor] 50 mg PO Q12HR #60 tab 09/24/21 [Rx] Metoprolol Tartrate [Lopressor] 75 mg PO BID 30 Days #180 tab 09/26/21 [Rx] Follow up Appointment(s)/Referral(s): Robin Brewster MD [STAFF PHYSICIAN] - 2 Weeks (Per [facility], Office will call you with time and date of appointment. ) Makenzie Petty III, MD [Primary Care Provider] - 1-2 days (Office is closed. Please call to schedule follow up appointment. ) Patient Instructions/Handouts: A-fib (Atrial Fibrillation) (DC), Safe Use of Anticoagulants (DC) Activity/Diet/Wound Care/Special Instructions: Activity Limited until follow-up Follow-up with primary care provider on discharge Follow-up with her radio frequency engineer Dr. Brewster as discussed and scheduled Discuss with cardiology about possible Dr. Buckley consult for outpatient ablation Continue taking medications as prescribed Avoid alcohol intake Continue current heart healthy diet Discharge Disposition: HOME SELF-CARE
== END 2021-09-26 13:47 | disposition home or self-care (01) ==
LOC: EC 16:35 → INTOOBSV 18:33 → 3SCARD 18:33 → UNDODISIN 09-26 13:47
PROVIDERS: ADMIT Hospitalist; ATTEND Hospitalist
DX: I48.0 Paroxysmal atrial fibrillation (principal); I42.9 Cardiomyopathy, unspecified; I08.1 Rheumatic disorders of both mitral and tricuspid valves; K21.9 Gastro-esophageal reflux disease without esophagitis; E66.9 Obesity, unspecified; Z68.33 Body mass index [BMI] 33.0-33.9, adult; Z79.82 Long term (current) use of aspirin; Z79.899 Other long term (current) drug therapy; Z90.49 Acquired absence of other specified parts of digestive tract; Z87.09 Personal history of other diseases of the respiratory system; Z98.890 Other specified postprocedural states; Z87.891 Personal history of nicotine dependence; Z83.3 Family history of diabetes mellitus; Z82.49 Family history of ischemic heart disease and other diseases of the circulatory system
CPT/HCPCS: 96376 ×2; 96366 ×3; 96368; 96365; 99285; 99291; 36415; 93005; 93306; 80053; 80048; 84443 ×2; 83735 ×2; 84484; 85025 ×2; 85610 ×2; 85730 ×2; 81001; 71046; G0378 ×4; J1644 ×3

== ENCOUNTER 2021-09-27 18:10 | Observation (INO) | payer BC, OTHER ==
[2021-09-27] MEDS ORDERED: SODIUM CHLORIDE 0.9% 1,000 ML IV STA (18:48)
[2021-09-27] MEDS ORDERED: METOPROLOL TARTRATE 5 MG/5 ML VIAL IVP STA (18:51)
--- NOTE | 2021-09-27 19:19 | ED ---
General Adult HPI - General Chief complaint: Arrhythmia/Palpitations Stated complaint: Afib Time Seen by Provider: 09/27/21 18:43 Source: patient, family, RN notes reviewed, old records reviewed Mode of arrival: wheelchair Limitations: no limitations - History of Present Illness Initial comments: 51-year-old male discharged from this hospital yesterday with a 2 fibrillation with RVR. Patient is currently on flecainide and metoprolol. He states that his heart rate was below 100 but was persistently atrial fibrillation. He is on 81 mg aspirin. He states that this afternoon beginning around 2 PM he developed more consistent tachycardia around 130s. He had palpitations at that time. No active chest pain. He has been eating and drinking well. - Related Data Home Medications Medication Instructions Recorded Confirmed Ascorbic Acid [Vitamin C] 1,000 mg PO HS 09/23/21 09/23/21 Multivitamins, Thera [Multivitamin 1 tab PO HS 09/23/21 09/23/21 (formulary)] Vitamin B Complex 1 cap PO DAILY 09/23/21 09/23/21 Zinc Gluconate [Zinc] 50 mg PO DAILY 09/23/21 09/23/21 Previous Rx's Medication Instructions Recorded Aspirin 81 mg PO DAILY #30 chew 07/06/19 Flecainide [Tambocor] 50 mg PO Q12HR #60 tab 09/24/21 Metoprolol Tartrate [Lopressor] 75 mg PO BID 30 Days #180 tab 09/26/21 Allergies Allergy/AdvReac Type Severity Reaction Status Date / Time No Known Allergies Allergy Verified 09/27/21 18:17 Review of Systems ROS Statement: Those systems with pertinent positive or pertinent negative responses have been documented in the HPI. ROS Other: All systems not noted in ROS Statement are negative. Past Medical History Past Medical History: Atrial Fibrillation, GERD/Reflux Additional Past Medical History / Comment(s): Bronchitis History of Any Multi-Drug Resistant Organisms: None Reported Past Surgical History: Adenoidectomy, Appendectomy, Orthopedic Surgery, Tonsillectomy Additional Past Surgical History / Comment(s): R knee arthroscopy, R femur has negro/screws Past Anesthesia/Blood Transfusion Reactions: No Reported Reaction Past Psychological History: No Psychological Hx Reported Smoking Status: Former smoker - Past Family History Mother Family Medical History: No Reported History Additional Family Medical History / Comment(s): Mother is healthy Father Family Medical History: Congestive Heart Failure (CHF), Diabetes Mellitus, Hypertension Additional Family Medical History / Comment(s): Father at the age of 73 yrs. HTN ran on pt's father's side of family. General Exam Limitations: no limitations General appearance: alert, in no apparent distress Head exam: Present: atraumatic, normocephalic Eye exam: Present: normal appearance, PERRL ENT exam: Present: normal exam Neck exam: Present: normal inspection. Absent: tenderness, meningismus Respiratory exam: Present: normal lung sounds bilaterally. Absent: respiratory distress, wheezes Cardiovascular Exam: Present: normal rhythm, tachycardia GI/Abdominal exam: Present: soft. Absent: distended, tenderness, guarding Extremities exam: Present: normal inspection, normal capillary refill. Absent: pedal edema Neurological exam: Present: alert, oriented X3, CN II-XII intact. Absent: motor sensory deficit Psychiatric exam: Present: normal affect, normal mood Skin exam: Present: warm, dry, intact. Absent: cyanosis, diaphoretic Course Vital Signs 09/27/21 09/27/21 18:11 20:12 Temperature 98.4 F Pulse Rate 35 L 123 H Respiratory 18 18 Rate Blood Pressure 160/99 124/92 O2 Sat by Pulse 96 96 Oximetry - Reevaluation(s) Reevaluation #1: 09/27/21 [address] Ritter who is familiar with this patient, recommends IV metoprolol in an attempt to obtain rate control. EKG Findings - EKG Comments: EKG Findings:: EKG: Atrial flutter with 21 conduction rate of 137, QRS duration 109, QTC 359, no ST segment elevation. Medical Decision Making - Medical Decision Making 51-year-old male presenting with palpitations, found to be in A. fib with RVR. Recently discharged, yesterday. Heart rate at home has been persistently elevated. No active chest pain. Workup reveals mild acute kidney injury with no other significant findings including negative troponin. After initial dose of metoprolol the patient does not have significant improvement and rate. He is been started on Cardizem and will be admitted to [facility], with cardiology on consultation. - Lab Data Result diagrams: 09/27/21 19:08 09/27/21 19:08 Lab Results 09/27/21 09/27/21 09/27/21 Range/Units 19:08 19:08 19:08 WBC 10.1 (3.8-10.6) k/uL RBC 4.99 (4.30-5.90) m/uL Hgb 14.4 (13.0-17.5) gm/dL Hct 43.0 (39.0-53.0) % MCV 86.1 (80.0-100.0) fL MCH 28.8 (25.0-35.0) pg MCHC 33.4 (31.0-37.0) g/dL RDW 13.7 (11.5-15.5) % Plt Count 270 (150-450) k/uL MPV 7.0 Neutrophils % 59 % Lymphocytes % 31 % Monocytes % 5 % Eosinophils % 2 % Basophils % 1 % Neutrophils # 5.9 (1.3-7.7) k/uL Lymphocytes # 3.1 (1.0-4.8) k/uL Monocytes # 0.5 (0-1.0) k/uL Eosinophils # 0.2 (0-0.7) k/uL Basophils # 0.1 (0-0.2) k/uL PT 10.1 (9.0-12.0) sec INR 0.9 (<1.2) APTT 22.2 (22.0-30.0) sec Sodium 137 (137-145) mmol/L Potassium 4.5 (3.5-5.1) mmol/L Chloride 107 (98-107) mmol/L Carbon Dioxide 21 L (22-30) mmol/L Anion Gap 9 mmol/L BUN 25 H (9-20) mg/dL Creatinine 1.26 H (0.66-1.25) mg/dL Est GFR (CKD-EPI)AfAm 75 (>60 ml/min/1.73 sqM) Est GFR (CKD-EPI)NonAf 65 (>60 ml/min/1.73 sqM) Glucose 118 H (74-99) mg/dL Calcium 9.0 (8.4-10.2) mg/dL Magnesium 2.2 (1.6-2.3) mg/dL Total Bilirubin 0.4 (0.2-1.3) mg/dL AST 42 (17-59) U/L ALT 86 H (4-49) U/L Alkaline Phosphatase 73 (38-126) U/L Troponin I (0.000-0.034) ng/mL Total Protein 6.7 (6.3-8.2) g/dL Albumin 4.1 (3.5-5.0) g/dL 09/27/21 Range/Units 19:08 WBC (3.8-10.6) k/uL RBC (4.30-5.90) m/uL Hgb (13.0-17.5) gm/dL Hct (39.0-53.0) % MCV (80.0-100.0) fL MCH (25.0-35.0) pg MCHC (31.0-37.0) g/dL RDW (11.5-15.5) % Plt Count (150-450) k/uL MPV Neutrophils % % Lymphocytes % % Monocytes % % Eosinophils % % Basophils % % Neutrophils # (1.3-7.7) k/uL Lymphocytes # (1.0-4.8) k/uL Monocytes # (0-1.0) k/uL Eosinophils # (0-0.7) k/uL Basophils # (0-0.2) k/uL PT (9.0-12.0) sec INR (<1.2) APTT (22.0-30.0) sec Sodium (137-145) mmol/L Potassium (3.5-5.1) mmol/L Chloride (98-107) mmol/L Carbon Dioxide (22-30) mmol/L Anion Gap mmol/L BUN (9-20) mg/dL Creatinine (0.66-1.25) mg/dL Est GFR (CKD-EPI)AfAm (>60 ml/min/1.73 sqM) Est GFR (CKD-EPI)NonAf (>60 ml/min/1.73 sqM) Glucose (74-99) mg/dL Calcium (8.4-10.2) mg/dL Magnesium (1.6-2.3) mg/dL Total Bilirubin (0.2-1.3) mg/dL AST (17-59) U/L ALT (4-49) U/L Alkaline Phosphatase (38-126) U/L Troponin I <0.012 (0.000-0.034) ng/mL Total Protein (6.3-8.2) g/dL Albumin (3.5-5.0) g/dL Disposition Clinical Impression: Atrial fibrillation with RVR Disposition: ADMITTED IP TO THIS HOSP Condition: Stable Is patient prescribed a controlled substance at d/c from ED?: No Referrals: Makenzie Petty III, MD [Primary Care Provider] - 1-2 days Decision to Admit Reason: Admit from EC Decision Date: 09/27/21 Decision Time: 20:31
[2021-09-27 19:27] LABS: Albumin 4.1 g/dL (3.5-5.0); Magnesium 2.2 mg/dL (1.6-2.3); Potassium 4.5 mmol/L (3.5-5.1); Total Bilirubin 0.4 mg/dL (0.2-1.3); Total Protein 6.7 g/dL (6.3-8.2)
[2021-09-27 19:40] LABS: Basophils # (A) 0.1 k/uL (0-0.2); Basophils % (A) 1 %; Eosinophils # (A) 0.2 k/uL (0-0.7); Eosinophils % (A) 2 %; HGB 14.4 gm/dL (13.0-17.5); Lymphocytes # (A) 3.1 k/uL (1.0-4.8); Lymphocytes % (A) 31 %; MCH 28.8 pg (25.0-35.0); MCHC 33.4 g/dL (31.0-37.0); MCV 86.1 fL (80.0-100.0); Monocytes # (A) 0.5 k/uL (0-1.0); Monocytes % (A) 5 %; Neutrophils # (A) 5.9 k/uL (1.3-7.7); Neutrophils % (A) 59 %; Platelet Count 270 k/uL (150-450); RBC 4.99 m/uL (4.30-5.90); RDW 13.7 % (11.5-15.5); WBC 10.1 k/uL (3.8-10.6)
[2021-09-27 19:45] LABS: INR 0.9 (<1.2); Partial Thromboplastin Time 22.2 sec (22.0-30.0); Prothrombin Time 10.1 sec (9.0-12.0)
[2021-09-27] MEDS ORDERED: DILTIAZEM DRIP BOLUS FROM BAG 1 MG SOLN IV ONE (20:27)
[2021-09-27] MEDS ORDERED: ACETAMINOPHEN TAB 325 MG TAB PO PRN (20:27)
[2021-09-27] MEDS ORDERED: NALOXONE 0.4 MG/ML 1 ML VIAL IV PRN (20:27)
[2021-09-27] MEDS ORDERED: DILTIAZEM 125 MG in SODIUM CHLORIDE 0.9% 100 ML IV SCH (20:45)
[2021-09-27] MEDS: SODIUM CHLORIDE 0.9% 1,000 ML IV SCH (20:53)
[2021-09-28] MEDS ORDERED: ASPIRIN 81 MG PO SCH (09:00)
[2021-09-28 10:22] VITALS: PULSE 76; RESP 16
--- NOTE | 2021-09-28 10:39 | P.HPIM ---
History of Present Illness 51-year-old the pleasant male came in with complaints of palpitations found to be in atrial flutter. Patient was recently treated for atrial fibrillation with rapid ventricular rate subsequently was discharged patient chads score was low because of which patient was not started on any anticoagulation. Patient usually creatinine is within normal limits his creatinine did go up to around 1.24 patient is probably dehydrated prostrating atrial fibrillation again. Patient was started on flecainide and the metoprolol 75 twice a day upon discharge. Patient denied any fever chills patient and nausea vomiting diarrhea. She and the was given a IV metoprolol followed by Cardizem drip patient blood pressure is low normal at this time with this can you Cardizem patient will be started on plaque on iron and slowly restart him back on metoprolol cardiology was consulted. Had an ejection fraction of 45-50% on the echo that was done recently.. REVIEW OF SYSTEMS: CONSTITUTIONAL: No fever, no malaise, no fatigue. HEENT: No recent visual problems or hearing problems. Denied any sore throat. CARDIOVASCULAR: No chest pain, orthopnea, PND, no syncope. PULMONARY: No shortness of breath, no cough, no hemoptysis. GASTROINTESTINAL: No diarrhea, no nausea, no vomiting, no abdominal pain. NEUROLOGICAL: No headaches, no weakness, no numbness. HEMATOLOGICAL: Denies any bleeding or petechiae. GENITOURINARY: Denies any burning micturition, frequency, or urgency. MUSCULOSKELETAL/RHEUMATOLOGICAL: Denies any joint pain, swelling, or any muscle pain. ENDOCRINE: Denies any polyuria or polydipsia. The rest of the 14-point review of systems is negative. PHYSICAL EXAMINATION: GENERAL: The patient is alert and oriented x3, not in any acute distress. Well developed, well nourished. HEENT: Pupils are round and equally reacting to light. EOMI. No scleral icterus. No conjunctival pallor. Normocephalic, atraumatic. No pharyngeal erythema. No thyromegaly. CARDIOVASCULAR: S1 and S2 present. No murmurs, rubs, or gallops. PULMONARY: Chest is clear to auscultation, no wheezing or crackles. ABDOMEN: Soft, nontender, nondistended, normoactive bowel sounds. No palpable organomegaly. MUSCULOSKELETAL: No joint swelling or deformity. EXTREMITIES: No cyanosis, clubbing, or pedal edema. NEUROLOGICAL: Gross neurological examination did not reveal any focal deficits. SKIN: No rashes. Assessment and plan -Proximal atrial fibrillation with rapid ventricular rate patient is presently rate controlled in atrial flutter, patient will be transitioned to by mouth medications disc any IV Cardizem blood pressure is low normal low chads score. Atrial flutter is probably secondary to dehydration. -Acute renal failure prerenal azotemia due to possibly dehydration patient is on IV fluids which will be continued FN gastroesophageal reflux disease DVT prophylaxis: Ambulation Past Medical History Past Medical History: Atrial Fibrillation, GERD/Reflux Additional Past Medical History / Comment(s): Bronchitis History of Any Multi-Drug Resistant Organisms: None Reported Past Surgical History: Adenoidectomy, Appendectomy, Orthopedic Surgery, Tonsillectomy Additional Past Surgical History / Comment(s): R knee arthroscopy, R femur has negro/screws Past Anesthesia/Blood Transfusion Reactions: No Reported Reaction Past Psychological History: No Psychological Hx Reported Additional Psychological History / Comment(s): Pt resides with spouse and his mother lives with them. Pt is independent. Smoking Status: Former smoker Past Alcohol Use History: Occasional Additional Past Alcohol Use History / Comment(s): Pt started smoking in 1982 and quit in 2019 Past Drug Use History: None Reported - Past Family History Mother Family Medical History: No Reported History Additional Family Medical History / Comment(s): Mother is healthy Father Family Medical History: Congestive Heart Failure (CHF), Diabetes Mellitus, Hypertension Additional Family Medical History / Comment(s): Father at the age of 73 yrs. HTN ran on pt's father's side of family. Medications and Allergies Home Medications Medication Instructions Recorded Confirmed Type Aspirin 81 mg PO DAILY #30 chew 07/06/19 09/27/21 Rx Ascorbic Acid [Vitamin C] 1,000 mg PO HS 09/23/21 09/27/21 History Multivitamins, Thera [Multivitamin 1 tab PO HS 09/23/21 09/27/21 History (formulary)] Vitamin B Complex 1 cap PO DAILY 09/23/21 09/27/21 History Zinc Gluconate [Zinc] 50 mg PO DAILY 09/23/21 09/27/21 History Metoprolol Tartrate [Lopressor] 75 mg PO BID 30 Days #180 tab 09/26/21 09/27/21 Rx Flecainide [Tambocor] 50 mg PO Q12H 09/27/21 09/27/21 History Allergies Allergy/AdvReac Type Severity Reaction Status Date / Time No Known Allergies Allergy Verified 09/27/21 20:30 Physical Exam Vitals: Vital Signs Temp Pulse Pulse Resp BP BP Pulse Ox 09/28/21 08:00 97.2 F L 76 16 97/66 95 09/28/21 04:00 98.6 F 68 18 111/86 92 L 09/27/21 23:22 98.2 F 55 L 16 124/75 95 09/27/21 22:22 73 18 114/92 96 09/27/21 20:12 123 H 18 124/92 96 09/27/21 18:11 98.4 F 35 L 18 160/99 96 Intake and Output 09/27/21 09/28/21 09/28/21 22:59 06:59 14:59 Intake Total 130 Balance 130 Intake: IV 10 Invasive Line 1 10 Oral 120 Other: # Voids 2 Weight 110.223 kg 110.223 kg Results CBC & Chem 7: 09/27/21 19:08 09/27/21 19:08 Labs: Abnormal Lab Results - Last 24 Hours (Table) 09/27/21 Range/Units 19:08 Carbon Dioxide 21 L (22-30) mmol/L BUN 25 H (9-20) mg/dL Creatinine 1.26 H (0.66-1.25) mg/dL Glucose 118 H (74-99) mg/dL ALT 86 H (4-49) U/L Thrombosis Risk Factor Assmnt - Choose All That Apply Each Factor Represents 1 point: Age 41-60 years Other Risk Factors: No Other congenital or acquired thrombophilia - If yes, enter type in comment: No Thrombosis Risk Factor Assessment Total Risk Factor Score: 1 Thrombosis Risk Factor Assessment Level: Low Risk
--- NOTE | 2021-09-28 10:41 | P.DS ---
Providers Date of admission: 09/27/21 20:28 Attending physician: Dre Meyer Consults: 09/27/21 20:29 Consult Physician Routine Consulting Provider: Héctor Ritter Consult Reason/Comments: A.fib rvr Do you want consulting provider notified?: Already Contacted Primary care physician: Makenzie Petty [facility] Course: Refer to history of present illness for further details Patient Condition at Discharge: Stable Plan - Discharge Summary Discharge Rx Participant: No New Discharge Prescriptions: No Action Aspirin 81 mg PO DAILY #30 chew Zinc Gluconate [Zinc] 50 mg PO DAILY Vitamin B Complex 1 cap PO DAILY Ascorbic Acid [Vitamin C] 1,000 mg PO HS Metoprolol Tartrate [Lopressor] 75 mg PO BID 30 Days #180 tab Flecainide [Tambocor] 50 mg PO Q12H Multivitamins, Thera [Multivitamin (formulary)] 1 tab PO HS Discharge Medication List Aspirin 81 mg PO DAILY #30 chew 07/06/19 [Rx] Ascorbic Acid [Vitamin C] 1,000 mg PO HS 09/23/21 [History] Multivitamins, Thera [Multivitamin (formulary)] 1 tab PO HS 09/23/21 [History] Vitamin B Complex 1 cap PO DAILY 09/23/21 [History] Zinc Gluconate [Zinc] 50 mg PO DAILY 09/23/21 [History] Metoprolol Tartrate [Lopressor] 75 mg PO BID 30 Days #180 tab 09/26/21 [Rx] Flecainide [Tambocor] 50 mg PO Q12H 09/27/21 [History] Follow up Appointment(s)/Referral(s): Makenzie Petty III, MD [Primary Care Provider] - 3 Days Discharge Disposition: HOME SELF-CARE
[2021-09-28] MEDS: SODIUM CHLORIDE 0.9% 1,000 ML IV SCH (10:44)
[2021-09-28] MEDS ORDERED: FLECAINIDE 50 MG TAB PO SCH (10:45)
[2021-09-28 13:22] VITALS: BP 102/74; TEMP 97.8
--- NOTE | 2021-09-28 16:53 | P.CRDCN ---
History of Present Illness History of present illness: HISTORY OF PRESENT ILLNESS: This is a 51-year-old male with a past medical history significant for with paroxysmal atrial fibrillation, former nicotine use, and occasional alcohol use. Patient follows in the office with Dr. Brewster. We have been asked to see the patient in consultation for A. fib/flutter with RVR. Patient had recently been admitted to the hospital for atrial fibrillation with RVR and metoprolol had been increased to 75 twice a day and also was placed on flecainide. He was more controlled however sent home and within a few hours of being home started noticing continued tachycardia. Patient admits he did not actually feel that bad however had been checking his heart rates and were in the 130s up to occasional 140s and therefore was concerned and presented back to the ER. EKG showed bowel atrial flutter, likely more organized secondary to flecainide. He denies any chest pain or pressure. Admits he is taking his medications. His CHADSVASC is 0 and therefore no anticoagulation is recommended. Telemetry reviewed with mostly atrial flutter however occasional atrial fibrillation and patient's heart rates in the 70s to 90s occasion to the 100s. REVIEW OF SYSTEMS: At the time of my exam: CONSTITUTIONAL: Denies fever or chills. HEENT: Denies blurred vision, vision changes, or eye pain. Denies hemoptysis CARDIOVASCULAR: Denies chest pain. Denies orthopnea. Denies PND. + palpitations RESPIRATORY: Denies shortness of breath. GASTROINTESTINAL: Denies abdominal pain. Denies nausea or vomiting. HEMATOLOGIC: Denies bleeding disorders. GENITOURINARY: Denies any blood in urine. SKIN: Denies pruitis. Denies rash. PHYSICAL EXAM: VITAL SIGNS: Reviewed. GENERAL: Well-developed in no acute distress. HEENT: Head is normocephalic. Pupils are equal, round. Sclerae anicteric. Mucous membranes of the mouth are moist. Neck supple. No JVD or thyromegaly LUNGS: Respirations even and unlabored. Lungs essentially clear to auscultation bilaterally. HEART: Irregular rate and rhythm. S1 and S2 heard. ABDOMEN: Soft. Nondistended. Nontender. EXTREMITIES: Normal range of motion. No clubbing or cyanosis. Peripheral pulses intact. No lower extremity edema NEUROLOGIC: Awake and alert. Oriented x 3. ASSESSMENT: Paroxysmal atrial fibrillation/ typical atrial flutter with RVR, currently better controlled Former nicotine use Frequent alcohol use PLAN: Discussed with patient heart rates of been better controlled and suspect the reason his heart rates were or elevated he gone into atrial flutter with 2-1 conduction. Not much more room to go up on rate controlling medication and we will increase flecainide to 100 mg twice a day. Also discussed possible consideration of SIENNA and cardioversion on Thursday however patient would prefer discharge home and follow-up in office. Patient is stable for discharge home on flecainide 100 mg twice a day as well as Lopressor 75 mg twice a day. Follow-up in office next week. Past Medical History Past Medical History: Atrial Fibrillation, GERD/Reflux Additional Past Medical History / Comment(s): Bronchitis History of Any Multi-Drug Resistant Organisms: None Reported Past Surgical History: Adenoidectomy, Appendectomy, Orthopedic Surgery, Tonsillectomy Additional Past Surgical History / Comment(s): R knee arthroscopy, R femur has negro/screws Past Anesthesia/Blood Transfusion Reactions: No Reported Reaction Past Psychological History: No Psychological Hx Reported Additional Psychological History / Comment(s): Pt resides with spouse and his mother lives with them. Pt is independent. Smoking Status: Former smoker Past Alcohol Use History: Occasional Additional Past Alcohol Use History / Comment(s): Pt started smoking in 1982 and quit in 2019 Past Drug Use History: None Reported - Past Family History Mother Family Medical History: No Reported History Additional Family Medical History / Comment(s): Mother is healthy Father Family Medical History: Congestive Heart Failure (CHF), Diabetes Mellitus, Hypertension Additional Family Medical History / Comment(s): Father at the age of 73 yrs. HTN ran on pt's father's side of family. Medications and Allergies Home Medications Medication Instructions Recorded Confirmed Type Aspirin 81 mg PO DAILY #30 chew 07/06/19 09/27/21 Rx Ascorbic Acid [Vitamin C] 1,000 mg PO HS 09/23/21 09/27/21 History Multivitamins, Thera [Multivitamin 1 tab PO HS 09/23/21 09/27/21 History (formulary)] Vitamin B Complex 1 cap PO DAILY 09/23/21 09/27/21 History Zinc Gluconate [Zinc] 50 mg PO DAILY 09/23/21 09/27/21 History Metoprolol Tartrate [Lopressor] 75 mg PO BID 30 Days #180 tab 09/26/21 09/27/21 Rx Flecainide [Tambocor] 50 mg PO Q12H 09/27/21 09/27/21 History Allergies Allergy/AdvReac Type Severity Reaction Status Date / Time No Known Allergies Allergy Verified 09/27/21 20:30 Physical Exam Vitals: Vital Signs Temp Pulse Pulse Resp BP BP Pulse Ox 09/28/21 12:00 97.8 F 76 16 102/74 95 09/28/21 08:00 97.2 F L 76 16 97/66 95 09/28/21 04:00 98.6 F 68 18 111/86 92 L 09/27/21 23:22 98.2 F 55 L 16 124/75 95 09/27/21 22:22 73 18 114/92 96 09/27/21 20:12 123 H 18 124/92 96 09/27/21 18:11 98.4 F 35 L 18 160/99 96 Intake and Output 09/28/21 09/28/21 09/28/21 06:59 14:59 22:59 Intake Total 2569.167 Balance 2569.167 Intake: IV 920 Invasive Line 1 20 Sodium Chloride 0.9% 1, 900 000 ml @ 75 mls/hr IV . [id number] [facility] Rx#:[id number] Intake, IV Titration 69.167 Amount Diltiazem 125 mg In 69.167 Sodium Chloride 0.9% 100 ml @ 5 MG/HR 5 mls/hr IV .Q24H [facility] Rx#:[id number] Oral 1580 Other: # Voids 2 2 Weight 110.223 kg Results 09/27/21 19:08 09/27/21 19:08 Cardiac Enzymes 09/27/21 09/27/21 Range/Units 19:08 19:08 AST 42 (17-59) U/L Troponin I <0.012 (0.000-0.034) ng/mL Coagulation 09/27/21 Range/Units 19:08 PT 10.1 (9.0-12.0) sec APTT 22.2 (22.0-30.0) sec CBC 09/27/21 Range/Units 19:08 WBC 10.1 (3.8-10.6) k/uL RBC 4.99 (4.30-5.90) m/uL Hgb 14.4 (13.0-17.5) gm/dL Hct 43.0 (39.0-53.0) % Plt Count 270 (150-450) k/uL Comprehensive Metabolic Panel 09/27/21 Range/Units 19:08 Sodium 137 (137-145) mmol/L Potassium 4.5 (3.5-5.1) mmol/L Chloride 107 (98-107) mmol/L Carbon Dioxide 21 L (22-30) mmol/L BUN 25 H (9-20) mg/dL Creatinine 1.26 H (0.66-1.25) mg/dL Glucose 118 H (74-99) mg/dL Calcium 9.0 (8.4-10.2) mg/dL AST 42 (17-59) U/L ALT 86 H (4-49) U/L Alkaline Phosphatase 73 (38-126) U/L Total Protein 6.7 (6.3-8.2) g/dL Albumin 4.1 (3.5-5.0) g/dL Current Medications Generic Name Dose Route Start Last Admin Trade Name Freq PRN Reason Stop Dose Admin Acetaminophen 650 mg 09/27/21 20:27 Acetaminophen Tab 325 Mg Tab PO Q6HR PRN Mild Pain or Fever > 100.5 Aspirin 81 mg 09/28/21 09:00 09/28/21 10:39 Aspirin 81 Mg PO 81 mg DAILY [facility]TO[facility] Administration Flecainide Acetate 50 mg 09/28/21 10:45 09/28/21 10:39 Flecainide 50 Mg Tab PO 50 mg Q12HR [facility] Administration Sodium Chloride 1,000 mls @ 75 mls/hr 09/27/21 20:30 09/28/21 10:44 Saline 0.9% IV Not Given .[id number] [facility] Metoprolol Tartrate 75 mg 09/28/21 21:00 Metoprolol Tartrate 25 Mg Tab PO BID [facility] Naloxone HCl 0.2 mg 09/27/21 20:27 Naloxone 0.4 Mg/Ml 1 Ml Vial IV Q2M PRN Opioid Reversal Intake and Output 09/28/21 09/28/21 09/28/21 06:59 14:59 22:59 Intake Total 2569.167 Balance 2569.167 Intake: IV 920 Invasive Line 1 20 Sodium Chloride 0.9% 1, 900 000 ml @ 75 mls/hr IV . [id number] [facility] Rx#:[id number] Intake, IV Titration 69.167 Amount Diltiazem 125 mg In 69.167 Sodium Chloride 0.9% 100 ml @ 5 MG/HR 5 mls/hr IV .Q24H [facility] Rx#:[id number] Oral 1580 Other: # Voids 2 2 Weight 110.223 kg 09/27/21 19:08 09/27/21 19:08
[2021-09-28] MEDS ORDERED: METOPROLOL TARTRATE 25 MG TAB PO SCH (21:00)
== END 2021-09-28 17:40 | disposition home or self-care (01) ==
LOC: EC 18:10 → 3SCARD 20:28 → INTOOBSV 20:28 → 3SCARD 21:44 → UNDODISIN 09-28 17:40
PROVIDERS: ADMIT Hospitalist; ATTEND Hospitalist
DX: I48.0 Paroxysmal atrial fibrillation (principal); N17.9 Acute kidney failure, unspecified; I48.3 Typical atrial flutter; K21.9 Gastro-esophageal reflux disease without esophagitis; Z79.82 Long term (current) use of aspirin; Z79.899 Other long term (current) drug therapy; Z90.49 Acquired absence of other specified parts of digestive tract; Z98.890 Other specified postprocedural states; Z87.891 Personal history of nicotine dependence; Z82.49 Family history of ischemic heart disease and other diseases of the circulatory system; Z83.3 Family history of diabetes mellitus
CPT/HCPCS: 96366 ×3; 96376; 96361; 96365; 96375; 99285; 36415; 93005; 80053; 83735; 84484; 85025; 85610; 85730; G0378 ×2; 96374

== ENCOUNTER 2021-11-06 06:00 | Day surgery (SDC) | payer BC, OTHER ==
[2021-11-06] MEDS ORDERED: ALPRAZolam 0.5 MG TAB PO PRN (06:01)
[2021-11-06] MEDS ORDERED: ALPRAZolam 0.25 MG TAB PO PRN (06:01)
[2021-11-06] MEDS ORDERED: ATORVASTATIN 80 MG TAB PO STA (06:01)
[2021-11-06] MEDS ORDERED: LACTATED RINGERS 1,000 ML IV SCH (06:01)
[2021-11-06] MEDS ORDERED: SODIUM CHLORIDE 0.9% 1,000 ML IV SCH (06:01)
[2021-11-06] MEDS ORDERED: NITROGLYCERIN SL TABS 0.4 MG TAB SUBLINGUAL PRN (06:01)
[2021-11-06] MEDS ORDERED: ASPIRIN 325 MG TAB PO STA (06:01)
[2021-11-06] MEDS ORDERED: APIXABAN 5 MG TAB PO STA (06:10)
[2021-11-06] MEDS ORDERED: SODIUM CHLORIDE 0.9% 500 ML 500 ML IV ONE ×3 (06:25→07:38)
[2021-11-06] MEDS ORDERED: APIXABAN 5 MG TAB PO ONE (06:45)
[2021-11-06] MEDS ORDERED: HEPARIN SODIUM,PORCINE 2,500 UNIT in SODIUM CHLORIDE 0.9% 250 ML IRRIGATION PRN (07:00)
[2021-11-06] MEDS ORDERED: HEPARIN SODIUM,PORCINE 10,000 UNIT in SODIUM CHLORIDE 0.9% 1,000 ML IRRIGATION PRN (07:00)
[2021-11-06] MEDS ORDERED: PROPOFOL 10 MG/ML 20 ML VIAL IV ONE (07:26)
[2021-11-06 07:31] LABS: African American GFR (CKD) >90 (>60 ml/min/1.73 sqM); Anion Gap 5 mmol/L; Blood Urea Nitrogen 18 mg/dL (9-20); Calcium 6.7 mg/dL (8.4-10.2); Carbon Dioxide 18 mmol/L (22-30); Chloride 117 mmol/L (98-107); Glucose 85 mg/dL (74-99); Non-African American GFR(CKD) >90 (>60 ml/min/1.73 sqM); Potassium 3.6 mmol/L (3.5-5.1); Sodium 140 mmol/L (137-145)
[2021-11-06 07:53] VITALS: TEMP 97
[2021-11-06 08:01] VITALS: RESP 16
--- NOTE | 2021-11-06 08:48 | PCN ---
PROCEDURE NOTE ELECTRICAL CARDIOVERSION NOTE: DATE OF SERVICE: 11/06/2021 PROCEDURE: Electrical cardioversion. INDICATION: Persistent atrial fibrillation in spite of pharmacological efforts. CLINICAL INFORMATION: Mr. Jesus Manuel Buitrago is a 51-year-old gentleman with a recent onset of paroxysmal atrial flutter and sometimes atrial fibrillation. He also has hypertension. He was hospitalized, rate controlled and discharged. Subsequently he was anticoagulated for over 4 weeks. He was brought in for the procedure electively after due discussion regarding risks, benefits, options and rationale. PROCEDURE NOTE: Under the influence of [id number] intravenous anesthetic agent with the attendance of the anesthesiologist, a single shock was delivered to the chest wall with anterior and posterior patches. This was a 100-joule shock in a synchronized fashion. Patient converted to sinus rhythm, remained hemodynamically stable and neurologically intact. Results were discussed with the patient and his . He will be discharged later on today and I will see him in the office in 48 hours. He will continue current medications at a lower dose as specified in D/C instructions, including Eliquis 5 mg b.i.d. This was a successful procedure. MMHIRAL / IFTIKHARN: [id number] / [id number]
[2021-11-06] MEDS ORDERED: FLECAINIDE 50 MG TAB PO SCH (09:00)
[2021-11-06] MEDS ORDERED: NON FORMULARY DRUG (Zinc Gluconate 50 MG Tab) PO SCH (09:00)
[2021-11-06] MEDS ORDERED: APIXABAN 5 MG TAB PO SCH (09:00)
[2021-11-06] MEDS ORDERED: NON FORMULARY DRUG (Vitamin B Complex [Vitamin B Complex] 1 EACH Capsule) PO SCH (09:00)
[2021-11-06] MEDS ORDERED: METOPROLOL TARTRATE 25 MG TAB PO SCH (09:00)
[2021-11-06 10:25] VITALS: BP 109/68; PULSE 56
[2021-11-06] MEDS ORDERED: MULTIVITAMINS, THERA 1 EACH TAB PO SCH (21:00)
[2021-11-06] MEDS ORDERED: NON FORMULARY DRUG (Ascorbic Acid [Vitamin C] 1,000 MG Tablet) PO SCH (21:00)
== END 2021-11-06 09:23 | disposition home or self-care (01) ==
LOC: CATHCVL 06:00
PROVIDERS: ATTEND Internal Medicine Interventional Cardiology
DX: I48.19 Other persistent atrial fibrillation (principal); I48.92 Unspecified atrial flutter; I10 Essential (primary) hypertension; Z82.49 Family history of ischemic heart disease and other diseases of the circulatory system; E66.9 Obesity, unspecified; Z20.822 Contact with and (suspected) exposure to COVID-19; Z68.32 Body mass index [BMI] 32.0-32.9, adult; G47.33 Obstructive sleep apnea (adult) (pediatric); K21.9 Gastro-esophageal reflux disease without esophagitis; Z87.09 Personal history of other diseases of the respiratory system; Z90.49 Acquired absence of other specified parts of digestive tract; Z98.890 Other specified postprocedural states; Z79.01 Long term (current) use of anticoagulants; Z79.899 Other long term (current) drug therapy
CPT/HCPCS: 92960; 80048; 87635; J2704